=== PATIENT | female | born 1975 | race Asian ===

== ENCOUNTER → 2021-07-08 15:31 | Outpatient (CLI) | payer OTHER, SELFPAY ==
--- NOTE | 2021-07-08 15:40 | DI.MG.S_ITS ---
BILATERAL DIGITAL SCREENING MAMMOGRAM 3D/2D WITH CAD: 07/08/2021 CLINICAL: Routine screening. Comparison is made to exams dated: 03/24/2020 mammogram and 03/20/2019 mammogram - outside location. The tissue of both breasts is heterogeneously dense. This may lower the sensitivity of mammography. Current study was also evaluated with a Computer Aided Detection (CAD) system. There is a focal asymmetry with new grouped fine calcifications in the left breast at 3 o'clock posterior depth. This is more prominent. No other significant masses, calcifications, or other findings are seen in either breast. IMPRESSION: INCOMPLETE: NEEDS ADDITIONAL IMAGING EVALUATION The focal asymmetry in the left breast is indeterminate. Additional views with possible ultrasound are recommended. This exam was interpreted at Station ID: [id number]. NOTE: For mammograms, a report in lay terms will be sent to the patient. Approximately 15% of breast malignancies will not be visualized mammographically. In the management of a palpable breast mass, a negative mammogram must not discourage biopsy of a clinically suspicious lesion. Electronically Signed By: Ricky Pierson M.D. slc/:07/09/2021 09:32:52 letter sent: Additional Imaging Needed ACR BI-RADS Category 0: Incomplete 3340F
== END ==
PROVIDERS: Referring Provider Obstetrics & Gynecology; Visit Provider Obstetrics & Gynecology
DX: Z12.31 Encounter for screening mammogram for malignant neoplasm of breast (principal)
CPT/HCPCS: 77063; 77067

== ENCOUNTER → 2021-08-21 08:54 | Outpatient (CLI) | payer OTHER, SELFPAY ==
--- NOTE | 2021-08-21 | DI.MG.S_ITS ---
UNILATERAL LEFT DIGITAL DIAGNOSTIC MAMMOGRAM 3D/2D WITH ADDITIONAL VIEWS: 08/21/2021 CLINICAL: Additional evaluation requested from prior study. Comparison is made to exams dated: 07/08/2021 mammogram - [facility], 03/24/2020 mammogram, and 03/20/2019 mammogram - outside location. The tissue of left breast is heterogeneously dense. This may lower the sensitivity of mammography. There is a focal asymmetry with grouped fine calcifications in the left breast at 3 o'clock posterior depth. This is less prominent on additional views. The calcifications are confirmed and new. No other significant masses or calcifications are seen in the breast. IMPRESSION: INCOMPLETE: NEEDS ADDITIONAL IMAGING EVALUATION The focal asymmetry and fine grouped calcifications in the left breast are indeterminate. A targeted ultrasound is recommended and will immediately follow. This exam was interpreted at Station ID: [id number]. NOTE: For mammograms, a report in lay terms will be sent to the patient. Approximately 15% of breast malignancies will not be visualized mammographically. In the management of a palpable breast mass, a negative mammogram must not discourage biopsy of a clinically suspicious lesion. Electronically Signed By: Ricky Pierson M.D. slc/:08/21/2021 09:30:35 ACR BI-RADS Category 0: Incomplete 3340F
--- NOTE | 2021-08-21 | DI.US.S_ITS ---
LIMITED ULTRASOUND OF LEFT BREAST AND AXILLA: 08/21/2021 CLINICAL: Patient returns today to evaluate a focal asymmetry in the left breast. Comparison is made to exams dated: 08/21/2021 mammogram, 07/08/2021 mammogram - [facility], 03/24/2020 mammogram, and 03/20/2019 mammogram - outside location. Real-time ultrasound of the left breast 3 o'clock, and axilla regions was performed. Haji scale images of the real-time examination were reviewed. There is a 2.3 cm x 2.3 cm x 1.5 cm irregular mass with an indistinct margin in the left breast at 3 o'clock posterior depth 5 cm from the nipple. This irregular mass is hypoechoic. There are related micro calcifications. No significant abnormalities were seen sonographically in the left axilla. IMPRESSION: SUSPICIOUS OF MALIGNANCY 1) The 2.3 cm x 2.3 cm x 1.5 cm irregular mass in the left breast is at a high suspicion for malignancy. -An ultrasound guided biopsy is recommended. 2) No significant abnormalities were seen sonographically in the left axilla. Exam findings were discussed with the patient by Dr. Crain. This exam was interpreted at Station ID: [id number]. Electronically Signed By: Ricky Pierson M.D. [facility]/:08/21/2021 10:26:34 letter sent: Biopsy Required Ultrasound BI-RADS: 4c High suspicion of malignancy
== END ==
PROVIDERS: Referring Provider Obstetrics & Gynecology; Visit Provider Obstetrics & Gynecology
DX: R92.8 Other abnormal and inconclusive findings on diagnostic imaging of breast (principal); N63.25 Unspecified lump in the left breast, overlapping quadrants
CPT/HCPCS: 76642; 77065; G0279

== ENCOUNTER 2022-09-05 21:40 | Emergency (ER) | payer SELFPAY ==
[2022-09-05 21:44] VITALS: BP 116/85; PULSE 91; RESP 15; TEMP 37; O2SAT 97; BMI 23.8
[2022-09-05 22:04] LABS: Bacteria Urine Few (2-10); RBC Urine 0-1/HPF (0-5/HPF); WBC Urine 10-30/HPF (0-5/HPF)
[2022-09-05 22:05] LABS: Culture Indicated Urine Specimen Cultured; Squamous Epithelial Cell Urine None Seen (0-5/HPF)
[2022-09-05] MEDS: ONDANSETRON 4 MG ODT PREPACK 1 BOTTLE MISC (23:45)
[2022-09-05] MEDS: HYDROCODONE/ACET 5/325 PREPACK 1 BOTTLE MISC (23:45)
[2022-09-05] MEDS: levoFLOXacin 250 MG TABLET 750 MG PO (23:45)
[2022-09-05 23:46] VITALS: BP 117/77; PULSE 88; RESP 16; O2SAT 95
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
== END 2022-09-05 23:54 | disposition home or self-care (01) ==
PROVIDERS: Emergency Provider Emergency Medicine; Family Provider Registered Nurse Diabetes Educator; PCP Registered Nurse Diabetes Educator
DX: N12 Tubulo-interstitial nephritis, not specified as acute or chronic (principal)
CPT/HCPCS: 81003; 81015; 87077; 87086; 87186; 99283

== ENCOUNTER 2023-02-16 09:45 | Outpatient (RCR) | payer OTHER, SELFPAY ==
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
--- NOTE | 2022-06-03 16:59 | PT.OPPOC ---
Physical, Occupational & Speech Therapy At [facility] Current Diagnoses Malignant neoplasm of overlapping sites of left female breast (06/03/22) Pain in right shoulder (06/03/22) Pain in left shoulder (06/03/22) Soft tissue disorder, unspecified (06/03/22) Estrogen receptor positive status [ER+] (06/03/22) Visit Care Team Role Provider Type TAMMY Santiago Family Provider Advanced Information Architect Primary Care Provider Specialty: Medical Address: [address] [place] [address], [address] Email: [email or web address] Marcus Santos MD Attending Provider Non-Staff Referring Provider Specialty: Medical Address: [address] [place] [address], [id number] Email: Plan Of Care PT-OP-T Assessment and Plan Start: 06/02/22 12:04 Freq: Status: Active Protocol: Document 06/03/22 15:18 SAK (Rec: 06/03/22 16:56 SAK [id number]) Physical Therapy Assessment Rehab Potential Rehabilitation Potential Good Evaluation Complexity Number of Personal Factors/Comorbidities 1-2 Number of Body Systems Impaired 3 Clinical Presentation at Evaluation Evolving Impairments Impairments Pain,ROM,Soft Tissue Mobility Other Impairments at high risk for lymphedema Goals Three Impairment restricted scar mobility Short Term Goal (STG) Patient to instructed in self mobilization for surgical scars STG Duration 06/14/22 Channel Layer Goal (LTG) normal scar mobility to allow full soft tissue mobility including for full chest excursion for deep breathing and normal shoulder function. LTG Duration 09/11/22 Two Impairment high risk for lymphedema Short Term Goal (STG) Patient to be instructed in signs and symptoms of lymphedema, and precautions and prevention strategies STG Duration 06/14/22 Retirement Goal (LTG) Patient will demonstrate good understanding of signs and symptoms, precautions and prevention, and obtain myra compression sleeves for prevention. Circumferential measurements will be monitored myra UE's, chest, and subaxillary region. LTG Duration 09/01/22 One Impairment restricted shoulder ROM myra Short Term Goal (STG) Patient to be instructed in HEP with focus on ROM ex for bilateral shoulders STG Duration 07/03/22 Channel Layer Goal (LTG) Patient will be independent and compliant with HEP and demonstrate full active ROM bilateral shoulders to allow her to receive radiation treatments and regain full active use of her UE's LTG Duration 09/01/22 Assessment Summary Assessment Patient presents to PT s/p bilateral mastectomies 05/05/22 following lumpectomy with 3 cancerous lymph nodes. Patient reports follow-up with surgeon yesterday and was cleared for PT, exercise without restrictions. Is planning to have radiation but at this time her restrictions in shoulder ROM will not allow her to get into the position required for radiation. She is unable to lift her UE's above shoulder level forward or out to the side. She is also at high risk for lymphedema; she was instructed in prevention and precautions with written information issued and myra compression sleeves encouraged . Circumferential measurements were symmetrical. She does have a small area of fluid collection left subaxillary region but reports it seems like it has been getting better; will need to be monitored. Her incisions are healing well. She was instructed in HEP for bilateral shoulder ROM and demonstrated good understanding. She will benefit from PT for shoulder ROM, gentle scar mobilization when appropriate, and patient education and monitoring for signs and symptoms of lymphedema. POC was discussed and patient was in agreement. When radiation starts PT will likely be put on hold. Physical Therapy Plan Frequency and Duration Duration of treatment (weeks) 12 Plan of Care Start Date 06/03/22 Plan of Care End Date 09/01/22 Therapeutic Interventions Therapeutic Interventions Home Exercise Program, Lymphedema Management,Manual Therapy,Patient/Caregiver Education,Self-Care/Home Management,Soft Tissue Mobilization,Taping, Therapeutic Activities, Therapeutic Exercises Next Visit Focus/Plan Next Note Type Treatment Note Next Visit Plan Review HEP, gentle progression as tolerated including use of pulleys for shoulder ROM, initiate gentle scar massage when fully healed. Plan of Care Dates Plan of Care Start Date 06/03/22 Plan of Care End Date 09/01/22 Electronically Signed by: Emily Packer, PT 06/03/22 [id number] If you are in agreement with this Plan of Care, please return a signed and dated copy. I have reviewed this Plan of Care and certify that the skilled therapy services above are required to meet the patient?s needs. Physician Signature Date Printed Name and Credentials Clinical Instructor Signature Printed Name and Credentials
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
--- NOTE | 2022-08-18 09:03 | PT-OP ANOTE ---
Cancelled pt due to lack of insurance coverage.
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
--- NOTE | 2022-09-01 14:05 | PT.OPPOC ---
Physical, Occupational & Speech Therapy At [facility] Current Diagnoses Malignant neoplasm of overlapping sites of left female breast (09/01/22) Pain in right shoulder (09/01/22) Pain in left shoulder (09/01/22) Soft tissue disorder, unspecified (09/01/22) Estrogen receptor positive status [ER+] (09/01/22) Visit Care Team Role Provider Type TAMMY Santiago Family Provider Advanced Qa Tester Primary Care Provider Specialty: Medical Address: [address] [place] [address], [id number] Email: [email or web address] Marcus Santos MD Attending Provider Non-Staff Referring Provider Specialty: Medical Address: [address] [place] [address], [id number] Email: Plan Of Care PT-OP-T Assessment and Plan Start: 06/02/22 12:04 Freq: Status: Active Protocol: Document 09/01/22 09:47 SAK (Rec: 09/01/22 10:33 SAK [id number]) Physical Therapy Assessment Impairments Impairments Pain,ROM,Soft Tissue Mobility Other Impairments at high risk for lymphedema Goals Three Impairment restricted scar mobility Short Term Goal (STG) Patient to instructed in self mobilization for surgical scars 08/18/22: goal met STG Duration goal met Collection Card Clerk Goal (LTG) normal scar mobility to allow full soft tissue mobility including for full chest excursion for deep breathing and normal shoulder function. LTG Duration 10/02/22 Two Impairment high risk for lymphedema Short Term Goal (STG) Patient to be instructed in signs and symptoms of lymphedema, and precautions and prevention strategies 08/18/22: goal met STG Duration goal met Senior Care Goal (LTG) Patient will demonstrate good understanding of signs and symptoms, precautions and prevention, and obtain myra compression sleeves for prevention. Circumferential measurements will be monitored myra UE's, chest, and subaxillary region. 09/01/22: no signs or symptoms of lymphedema at this time. Has not obtained compression sleeves yet. LTG Duration 10/02/22 One Impairment restricted shoulder ROM myra Short Term Goal (STG) Patient to be instructed in HEP with focus on ROM ex for bilateral shoulders 08/18/22: goal met STG Duration goal met, ongoing progression and modification Collection Card Clerk Goal (LTG) Patient will be independent and compliant with HEP and demonstrate full active ROM bilateral shoulders to allow her to receive radiation treatments and regain full active use of her UE's 08/18/22: shoulder flex 168 right, 149 left, abduction 165 right, 155 left, ER 85 right 80 left, IR T12 right, L3 left . Impingement symptoms left 09/01/22: shoulder flex 175 right, 165 left, abduction 165 myra, ER 95 right 85 left, IR not assessed. Decreased impingement symptoms left, improved scapular awareness but some impingement symtpms persist LTG Duration 10/02/22 Assessment Summary Assessment Progression of ROM and strengthening exercises today with problem-solving position and technique to prevent overactivation of UT and impingement. Good compliance and progress. Plan 1 further PT visit at this time then anticipate discharge. Physical Therapy Plan Frequency and Duration Frequency of Treatment 1 visit Duration of treatment (weeks) 4 Plan of Care Start Date 09/01/22 Plan of Care End Date 10/02/22 Therapeutic Interventions Therapeutic Interventions Home Exercise Program, Lymphedema Management,Manual Therapy,Patient/Caregiver Education,Self-Care/Home Management,Soft Tissue Mobilization,Taping, Therapeutic Activities, Therapeutic Exercises Next Visit Focus/Plan Next Note Type Treatment Note Next Visit Plan Reassessment to determine need for any further PT, anticipate discharge next visit if doing well. Check myra shoulder ROM and strength, take circumferential measurements myra UE's, problem solve and progress HEP as indicated. Plan of Care Dates Plan of Care Start Date 09/01/22 Plan of Care End Date 10/02/22 Electronically Signed by: Emily Packer, PT 09/01/22 9009 If you are in agreement with this Plan of Care, please return a signed and dated copy. I have reviewed this Plan of Care and certify that the skilled therapy services above are required to meet the patient?s needs. Physician Signature Date Printed Name and Credentials Clinical Instructor Signature Printed Name and Credentials
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
--- NOTE | 2022-09-20 16:56 | PT.OPPOC ---
Physical, Occupational & Speech Therapy At [facility] Current Diagnoses Malignant neoplasm of overlapping sites of left female breast (09/20/22) Pain in right shoulder (09/20/22) Pain in left shoulder (09/20/22) Soft tissue disorder, unspecified (09/20/22) Estrogen receptor positive status [ER+] (09/20/22) Visit Care Team Role Provider Type TAMMY Santiago Family Provider Advanced Hatchery Attendant Primary Care Provider Specialty: Medical Address: [address] [place] [address], [id number] Email: [email or web address] Marcus Santos MD Attending Provider Non-Staff Referring Provider Specialty: Medical Address: [address] [place] [address], [address] Email: Plan Of Care PT-OP-T Assessment and Plan Start: 06/02/22 12:04 Freq: Status: Active Protocol: Document 09/20/22 16:44 SAK (Rec: 09/20/22 16:56 SAK [id number]) Physical Therapy Assessment Goals Three Impairment restricted scar mobility Short Term Goal (STG) Patient to instructed in self mobilization for surgical scars 08/18/22: goal met STG Duration goal met Care Home Goal (LTG) normal scar mobility to allow full soft tissue mobility including for full chest excursion for deep breathing and normal shoulder function. 09/20/22: good goal progress LTG Duration 11/20/22 Two Impairment high risk for lymphedema Short Term Goal (STG) Patient to be instructed in signs and symptoms of lymphedema, and precautions and prevention strategies 08/18/22: goal met STG Duration goal met Care Home Goal (LTG) Patient will demonstrate good understanding of signs and symptoms, precautions and prevention, and obtain myra compression sleeves for prevention. Circumferential measurements will be monitored myra UE's, chest, and subaxillary region. 09/01/22: no signs or symptoms of lymphedema at this time. Has not obtained compression sleeves yet. 09/20/22: good goal progress LTG Duration 11/20/22 One Impairment restricted shoulder ROM myra Short Term Goal (STG) Patient to be instructed in HEP with focus on ROM ex for bilateral shoulders 08/18/22: goal met STG Duration goal met, ongoing progression and modification Health Administrator Goal (LTG) Patient will be independent and compliant with HEP and demonstrate full active ROM bilateral shoulders to allow her to receive radiation treatments and regain full active use of her UE's 08/18/22: shoulder flex 168 right, 149 left, abduction 165 right, 155 left, ER 85 right 80 left, IR T12 right, L3 left . Impingement symptoms left 09/01/22: shoulder flex 175 right, 165 left, abduction 165 myra, ER 95 right 85 left, IR not assessed. Decreased impingement symptoms left, improved scapular awareness but some impingement symtpms persist 09/20/22: some impingement symptoms persist right shoulder with lack of full ROM , poor activation of middle and lower traps LTG Duration 11/20/22 Assessment Summary Assessment Patient continues to need PT to work on improved strength and ROM shoulders and chest with PT guidance due to poor mid and lower trap Having some impingement symptoms right shoulder due to decreased ability to activate middle and lower trap right. Would benefit from further PT. Continue to monitor for signs and symptoms of lymphedema as pt activity level increases. Physical Therapy Plan Frequency and Duration Frequency of Treatment Every Other Week Duration of treatment (weeks) 8 Plan of Care Start Date 09/20/22 Plan of Care End Date 11/20/22 Therapeutic Interventions Therapeutic Interventions Home Exercise Program, Lymphedema Management,Manual Therapy,Patient/Caregiver Education,Self-Care/Home Management,Soft Tissue Mobilization,Taping, Therapeutic Activities, Therapeutic Exercises Next Visit Focus/Plan Next Note Type Treatment Note Next Visit Plan [facility] 2x/month for 2 months. Plan of Care Dates Plan of Care Start Date 09/20/22 Plan of Care End Date 11/20/22 Electronically Signed by: Emily Packer, PT 09/20/22 1292 If you are in agreement with this Plan of Care, please return a signed and dated copy. I have reviewed this Plan of Care and certify that the skilled therapy services above are required to meet the patient?s needs. Physician Signature Date Printed Name and Credentials Clinical Instructor Signature Printed Name and Credentials
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
--- NOTE | 2022-11-16 15:40 | PT.OPPOC ---
Physical, Occupational & Speech Therapy At [facility] Current Diagnoses Malignant neoplasm of overlapping sites of left female breast (11/16/22) Pain in right shoulder (11/16/22) Pain in left shoulder (11/16/22) Soft tissue disorder, unspecified (11/16/22) Estrogen receptor positive status [ER+] (11/16/22) Visit Care Team Role Provider Type TAMMY Santiago Family Provider Advanced Seat Trimmer Primary Care Provider Specialty: Medical Address: [address] [place] [address], [id number] Email: [email or web address] Marcus Santos MD Attending Provider Non-Staff Referring Provider Specialty: Medical Address: [address] [place] [address], [address] Email: Plan Of Care PT-OP-T Assessment and Plan Start: 06/02/22 12:04 Freq: Status: Active Protocol: Document 11/16/22 10:36 SAK (Rec: 11/16/22 11:16 SAK [id number]) Physical Therapy Assessment Goals Three Impairment restricted scar mobility Short Term Goal (STG) Patient to instructed in self mobilization for surgical scars 08/18/22: goal met STG Duration goal met Snf Goal (LTG) normal scar mobility to allow full soft tissue mobility including for full chest excursion for deep breathing and normal shoulder function. 09/20/22: good goal progress 11/20/22: continues to progress LTG Duration 01/17/23 Two Impairment high risk for lymphedema Short Term Goal (STG) Patient to be instructed in signs and symptoms of lymphedema, and precautions and prevention strategies 08/18/22: goal met STG Duration goal met Snf Goal (LTG) Patient will demonstrate good understanding of signs and symptoms, precautions and prevention, and obtain myra compression sleeves for prevention. Circumferential measurements will be monitored myra UE's, chest, and subaxillary region. 09/01/22: no signs or symptoms of lymphedema at this time. Has not obtained compression sleeves yet. 09/20/22: good goal progress 11/20/22: no signs or symptoms of lymphedema. Has not obtained compression sleeves for compression; this not required but discussed benefits and need to be aware of any signs or symptoms LTG Duration 01/17/23 One Impairment restricted shoulder ROM myra Short Term Goal (STG) Patient to be instructed in HEP with focus on ROM ex for bilateral shoulders 08/18/22: goal met STG Duration goal met, ongoing progression and modification Import Manager Goal (LTG) Patient will be independent and compliant with HEP and demonstrate full active ROM bilateral shoulders to allow her to receive radiation treatments and regain full active use of her UE's 08/18/22: shoulder flex 168 right, 149 left, abduction 165 right, 155 left, ER 85 right 80 left, IR T12 right, L3 left . Impingement symptoms left 09/01/22: shoulder flex 175 right, 165 left, abduction 165 myra, ER 95 right 85 left, IR not assessed. Decreased impingement symptoms left, improved scapular awareness but some impingement symtpms persist 09/20/22: some impingement symptoms persist right shoulder with lack of full ROM , poor activation of middle and lower traps 11/16/22: right shoulder ROM WNL but with some instability, left shoulder lacking full elevation and unable to reach fully behind her back with some pinching sensation. Progressing with HEP, emphasis on need for strengthening for stability in movement and function, not just stretching LTG Duration 01/17/23 Assessment Summary Assessment Patient continues to progress with improving scar and soft tissue mobility, progression of HEP, and shows no signs or symptoms of lymphedema at this time. She has full active motion right shoulder, left shoulder still restricted into flexion and IR and she benefits from progression of ther ex as well as manual techniques for ROM and soft tissue mobilization. She has made good goal progress and would benefit from 4 additional visits over the next 2 months to continue to progress self-care with ROM and strengthening exercises and self-massage, and work further on soft tissue mobilization in scars and periscapular region. Patient highly motivated. POC discussed and she was in agreement. Physical Therapy Plan Frequency and Duration Frequency of Treatment Every Other Week Duration of treatment (weeks) 8 Plan of Care Start Date 11/16/22 Plan of Care End Date 01/17/23 Therapeutic Interventions Therapeutic Interventions Home Exercise Program, Lymphedema Management,Manual Therapy,Patient/Caregiver Education,Self-Care/Home Management,Soft Tissue Mobilization,Taping, Therapeutic Activities, Therapeutic Exercises Next Visit Focus/Plan Next Note Type Treatment Note Next Visit Plan Continue PT for ther ex, patient education, manual techniques for shoulder ROM and soft tissue mobilization. Plan of Care Dates Plan of Care Start Date 11/16/22 Plan of Care End Date 01/17/23 Electronically Signed by: Emily Packer, PT 11/16/22 [id number] If you are in agreement with this Plan of Care, please return a signed and dated copy. I have reviewed this Plan of Care and certify that the skilled therapy services above are required to meet the patient?s needs. Physician Signature Date Printed Name and Credentials Clinical Instructor Signature Printed Name and Credentials
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
== END 2023-03-10 10:08 | disposition home or self-care (01) ==
LOC: PHYS 09:45
PROVIDERS: Family Provider Registered Nurse Diabetes Educator; PCP Registered Nurse Diabetes Educator; Referring Provider Radiology Radiation Oncology; Visit Provider Radiology Radiation Oncology
DX: C50.812 Malignant neoplasm of overlapping sites of left female breast (principal); Z17.0 Estrogen receptor positive status [ER+]; M79.9 Soft tissue disorder, unspecified; M25.512 Pain in left shoulder; M25.511 Pain in right shoulder; I89.0 Lymphedema, not elsewhere classified
CPT/HCPCS: 97110; 97140; 97162; 97535

== ENCOUNTER 2024-05-11 10:18 | Day surgery (SDC) | payer OTHER, SELFPAY ==
--- NOTE | 2024-05-11 | PATH_ITS ---
[facility] Accession Number: [id number] No. of containers..04 Tissue . 01 Material submitted: . PART A: colon - POLYP AT 45 CM PART B: colon - POLYP AT 55 CM PART C: colon - POLYP AT 60 CM PART D: colon - POLYP AT 40 CM . 01 Diagnosis: A. COLON POLYP AT 45 CM: Hyperplastic polyp. . B. COLON POLYP AT 55 CM: Hyperplastic polyp. . C. COLON POLYP AT 60 CM: Hyperplastic polyp. . D. COLON POLYP AT 40 CM: Hyperplastic polyp. [facility] 05/15/2024 1146 Local . 01 Electronically signed: . Alexandru Reece MD, PhD, Pathologist NPI- [id number] . 01 Gross description: . Part A: POLYP AT 45 CM: Received in formalin are 2 fragment(s) of [place], soft tissue measuring 0.1 x 0.1 x 0.1 cm to 0.2 x 0.2 x 0.2 cm submitted entirely in 1 cassette(s) Part B: POLYP AT 55 CM: Received in formalin is 1 fragment(s) of [place], soft tissue measuring 0.4 x 0.2 x 0.2 cm submitted entirely in 1 cassette(s) Part C: POLYP AT 60 CM: Received in formalin is 1 fragment(s) of [place], soft tissue measuring 0.4 x 0.4 x 0.1 cm submitted entirely in 1 cassette(s) Part D: POLYP AT 40 CM: Received in formalin is 1 fragment(s) of [place], soft tissue measuring 0.3 x 0.2 x 0.2 cm submitted entirely in 1 cassette(s) /[facility] 05/14/2024 1702 Local . 01 Pathologist provided ICD-10: K63. CPT . 882112, 231462, 483948, 217147 Specimen Comment: A courtesy copy of this report has been sent to [facility] Pathology Performed at: [address] [id number] MD Rigoberto Winslow MD Phone: [phone]
[2024-05-11 10:39] VITALS: BP 98/69; PULSE 84; RESP 16; TEMP 36.4; O2SAT 98
[2024-05-11] MEDS: LACTATED RINGERS 1,000 ML 42 ML IV (10:50)
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
[2024-05-11 12:27] VITALS: BP 99/60; PULSE 96; RESP 19; TEMP 36.3; O2SAT 97
--- NOTE | 2024-05-11 12:28 | PM.OP.COLON ---
Operative Date/Time/Diagnoses Date of procedure: 05/11/24 Time of procedure: 12:28 Pre-op diagnosis: Screening colonoscopy, history of breast cancer and BRCA2 mutation Post-op diagnosis: same Procedure & Clinicians Study performed: Colonoscopy Same procedure as scheduled: Yes Indications: Screening colonoscopy, BRCA2 mutation carrier Surgeon: Jhoan Aguilar Procedure Notes SCOAP/Timeout: Performed Procedure in detail: Patient seen in the preop area, H and P updated, positive fecal occult testing. Patient reported prep was adequate. Patient brought back to procedure room, time-out was performed verifying correct patient procedure. She was given sedation. External rectal exam was performed with no identified fissures, or external hemorrhoids significance. Some skin tags. Digital rectal exam performed with no masses or blood. Colonoscope placed, colon insufflated, adequacy of prep was adequate but not perfect the scope was passed without difficulty to the cecum, verified by identification of the tinea and palpation The scope was withdrawn with circumferential view of the colon, areas occluded by bowel prep or cleaned as much as possible. Multiple small polyps all less than 1 cm and all sessile were biopsied in the following locations, 45 cm, 55 cm, 60 cm, 40 cm and were hemostatic after biopsy. These were sent for pathology No lesions were identified upon removal of the scope. The scope was retroflexed in the rectum and no internal hemorrhoids were identified air was withdrawn from the colon, scope was withdrawn, and the patient was brought to the recovery area in stable condition. Scope withdrawal time: 12 minutes Findings: polyp(s) (Multiple polyps, all less than 1 cm, all sessile, some biopsies were taken prior to reaching the cecum) Complications: none Impression: Multiple small polyps Post-procedure Recommendations: Other recommendation(s) Plan for aftercare: Patient should follow up with surgical oncologist for next steps. My recommendation would be given her BRCA mutation and cancer history, and now with multiple colonic polyps, she may benefit from frequent colonoscopy, possibly 1-3 years, though deferred to her oncologist for optimal timing and optimal location to allow for a comprehensive Cancer Care Follow up: as needed Disposition: PACU
[2024-05-11 12:32] VITALS: BP 109/67; PULSE 105; RESP 20; O2SAT 99
[2024-05-11 12:43] VITALS: BP 94/52; PULSE 99; RESP 15; O2SAT 95
== END 2024-05-11 12:56 | disposition home or self-care (01) ==
PROVIDERS: Family Provider Registered Nurse Diabetes Educator; PCP Registered Nurse Diabetes Educator
DX: Z12.11 Encounter for screening for malignant neoplasm of colon (principal); Z85.3 Personal history of malignant neoplasm of breast; Z14.8 Genetic carrier of other disease; R19.5 Other fecal abnormalities; K63.5 Polyp of colon
CPT/HCPCS: 45380; J2704

== ENCOUNTER 2024-05-15 10:45 | Outpatient (RCR) | payer OTHER, SELFPAY ==
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
--- NOTE | 2024-01-19 17:18 | PT.OPPOC ---
Physical, Occupational & Speech Therapy At [facility] Current Diagnoses Other bursitis of knee, left knee (01/19/24) Difficulty in walking, not elsewhere classified (01/19/24) Weakness (01/19/24) Edema, unspecified (01/19/24) Visit Care Team Role Provider Type TAMMY Santiago Family Provider Advanced B[employer] Agent Primary Care Provider Specialty: Medical Address: [address] [place] [address], [id number] Email: [email or web address] Shawanda Dennis MD Attending Provider Non-Staff Referring Provider Specialty: Oncology Address: [address] [place] [address], [id number] Email: Plan Of Care PT-OP-B Current Condition Start: 01/18/24 16:16 Freq: Status: Active Protocol: Document 01/19/24 15:17 SAK (Rec: 01/19/24 17:03 SAK [id number]) Current Condition History of Current Condition Onset Date 5 weeks Current Complaints L knee pain History of Current Condition sudden onset left knee pain, started with a little fluid filled bump below knee, then helped friend moving boxes, next day very puffy, couldn't move it. At end of summer started doing some lunges and squats and had similar thing. Chiropracter did laser and taping and alternating ice and heat. This time has had 2 laser and tape treatments but hasn't gotten better yet. States thought she was being careful with alignment and technique. Now getting compensatory soreness. Can't straighten knee all the way. Tried a knee brace, not helpful Feels it is going to give out. Can't bend beyond 90 degrees, feels crackling. Prior Treatments and Tests x-ray: no report yet. Treatment Goals Patient/Caregiver Goals minimize pain, return to prior level of function and understand correct technique for weight bearing leg strengthening. 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 [employer] Current Functional Impairments (Reported) Functional Limitations- ADL's painful Functional Limitations- Mobility/Gait painful and antalgic Functional Limitations- Work/School challenging, painful standing, walking PT-OP-T Assessment and Plan Start: 01/18/24 16:16 Freq: Status: Active Protocol: Document 01/19/24 15:17 [facility] (Rec: 01/19/24 17:03 [facility] [id number]) Physical Therapy Assessment Rehab Potential Rehabilitation Potential Good Evaluation Complexity Number of Personal Factors/Comorbidities 1-2 Number of Body Systems Impaired 3 Clinical Presentation at Evaluation Evolving Impairments Impairments Activity Tolerance,Edema,Gait, Pain,Soft Tissue Mobility, Strength Assessment Summary Assessment Patient presents to PT with function-limiting left knee pain, clicking, giving way, and swelling which started about a month ago after trying to start back to weight- bearing exercises including squats and lunges. Woke up with painful and swollen region lateral infrapatellar area left knee. Got a little better then helped friend move some boxes and experienced further swelling whole knee. Has seen chiropractor twice and treated with laser and kinesioape. No change in pain . Over the summer had similar pain that wasn't as severe but mostly went away after similar treatment. At this time patient pain and swelling moderate to severe with antalgic gait, step-to pattern on stairs, and inability to bend her left knee more than 90 degrees, clicking and popping as well as occasionally feeling it is going to give way. Circumferential measurements at knee joint: right knee 35 .3cm, left knee 39.8cm. Patient is tender to palpation medial joint line, has lateral positioning of her patella with excessive lateral glide, tightness in lateral quad and IT band. Unable to manual muscle test knee extension due to pain. Patient has weakness in her hips. Patient has hypermobility in her joints and ligamentous laxity bilateral knees. Treatment initiated with IFES with ice left knee, instruction in gentle exercises for strengthening (quad sets with pillow under knee and 4 way leg raises), instruction in self massage of lateral quad and IT band. KT tape applied to facilitate improved patellar positioning and glide and decrease swelling. Feel she will benefit from PT to decrease pain and swelling, improve strength and patellar alignment and movement, improve soft tissue mobility, and instruct in correct form for closed chain exercises. POC was discussed and she was in agreement. Physical Therapy Plan Frequency and Duration Frequency of Treatment 2x/Week Duration of treatment (weeks) 12 Plan of Care Start Date 01/19/24 Plan of Care End Date 04/18/24 Therapeutic Interventions Therapeutic Interventions Home Exercise Program,Manual Therapy,Neuromuscular Re- education,Patient/Caregiver Education,Self-Care/Home Management,Soft Tissue Mobilization,Taping, Therapeutic Activities, Therapeutic Exercises Modalities Cold Pack/Ice Massage,Electric Stimulation,Hot Packs, Iontophoresis,Ultrasound Other Referrals/Consults Referrals/Consults Recommended If not improved with PT feel further imaging may be indicated. Next Visit Focus/Plan Next Note Type Treatment Note Next Visit Plan Asses response to first treatment, review HEP, perform soft tissue mob to lateral quad and IT band, possible lymphatic massage to reduce swelling. Continue modalities and KT tape as indicated. Plan of Care Dates Plan of Care Start Date 01/19/24 Plan of Care End Date 04/18/24 Electronically Signed by: Emily Packer, PT 01/19/24 [id number] If you are in agreement with this Plan of Care, please return a signed and dated copy. I have reviewed this Plan of Care and certify that the skilled therapy services above are required to meet the patient?s needs. Physician Signature Date Printed Name and Credentials Clinical Instructor Signature Printed Name and Credentials
--- NOTE | 2024-01-24 15:52 | PT.OTN ---
Current Diagnoses Other bursitis of knee, left knee (01/24/24) Difficulty in walking, not elsewhere classified (01/24/24) Weakness (01/24/24) Edema, unspecified (01/24/24) Physical Therapy Treatment Note PT-OP-A Visit Information Start: 01/18/24 16:16 Freq: Status: Active Protocol: Document 01/24/24 14:33 SAK (Rec: 01/24/24 15:51 [facility] [id number]) Out-Patient Physical Therapy Visit Information Visit Information Visit Type Treatment Note Visit Start Time 14:30 Visit Stop Time 15:25 Visit Number 2 Evaluation Information Evaluation Date 01/15/24 Precautions Precautions osteoporosis, history br CA with myra mastectomies PT-OP-B Current Condition Start: 01/18/24 16:16 Freq: Status: Active Protocol: Document 01/24/24 14:33 SAK (Rec: 01/24/24 15:51 [facility] [id number]) Current Condition History of Current Condition Onset Date 5 weeks Current Complaints L knee pain History of Current Condition sudden onset left knee pain, started with a little fluid filled bump below knee, then helped friend moving boxes, next day very puffy, couldn't move it. At end of summer started doing some lunges and squats and had similar thing. Chiropracter did laser and taping and alternating ice and heat. This time has had 2 laser and tape treatments but hasn't gotten better yet. States thought she was being careful with alignment and technique. Now getting compensatory soreness. Can't straighten knee all the way. Tried a knee brace, not helpful Feels it is going to give out. Can't bend beyond 90 degrees, feels crackling. Prior Treatments and Tests x-ray: no report yet. PT-OP-C Subjective Start: 01/18/24 16:16 Freq: Status: Active Protocol: Document 01/24/24 14:33 SAK (Rec: 01/24/24 15:51 [facility] [id number]) OP-PT Subjective Patient Comments Patient Comments A little better, trying not to limp, focusing on doing heel toe gait. Saw doctor today, discussed options. x-ray showed swelling but no fracture. Saw chiropractor yesterday and had red light treatment and re-did KT tape. Also going to have an accupuncture treatment next week with physician's office. Liked PT KT tape Patient Reported Progress Improving PT-OP-F Manual Assessment Start: 01/18/24 16:16 Freq: Status: Active Protocol: Document 01/19/24 15:17 [facility] (Rec: 01/19/24 17:03 [facility] [id number]) Manual Assessments Soft Tissue Assessment Soft Tissue Mobility Assessment palpable tightness lateral quad and IT band PT-OP-G Mobility & Gait Start: 01/18/24 16:16 Freq: Status: Active Protocol: Document 01/19/24 15:17 [facility] (Rec: 01/19/24 17:03 [facility] [id number]) OP Mobility Evaluation Transfers Sit to Stand painful, dec use left LE Functional Movements Lifting and Carrying unable Squats unable Running Assessment unable OP Gait Assessment Gait Gait Assistance Required: Independent Assistive Devices Assistive Device None Gait Deviations General Gait Pattern Antalgic Comments Gait Comments Patient instructed in use of cane and trekking pole, preferred pole. Instructed in correct fit and use Stair Climbing Evaluation Evaluation Level of Assist On Stairs Independent Devices Stair Climbing Assistive Devices Left Railing,Right Railing Technique/Endurance Stair Climbing Technique Step to Step Comments Stair Climbing Comments painful PT-OP-J Posture/Palpation/Skin Start: 01/18/24 16:16 Freq: Status: Active Protocol: Document 01/19/24 15:17 [facility] (Rec: 01/19/24 17:03 [facility] [id number]) Posture Evaluation Position Standing Patellar Posture (L) Laterally Tilted Palpation Assessment Location One Palpation Location left knee Palpation Findings Edema Palpation Details puffy and boggy texture of swelling. No redness or warmth. PT-OP-K Range of Motion Start: 01/18/24 16:16 Freq: Status: Active Protocol: Document 01/19/24 15:17 [facility] (Rec: 01/19/24 17:03 [facility] [id number]) Hip Goniometric Range of Motion Hip myra Hip ROM WFL Yes Knee Goniometric Range of Motion Knee Left Flexion Active (degrees) 90 Extension Active (degrees) 20 Right Flexion Active (degrees) 150 Extension Active (degrees) 0 Hyper-Extension Active 5 Knee ROM Limitations Knee ROM Limitations Pain,Swelling Ankle and Foot Goniometric Range of Motion Ankle and Foot myra Ankle/Foot ROM WFL Yes PT-OP-L Special Tests Start: 01/18/24 16:16 Freq: Status: Active Protocol: Document 01/19/24 15:17 [facility] (Rec: 01/19/24 17:03 [facility] [id number]) Special Tests Knee Special Tests Patellar Grind Test Test Results + Valgus- 25 Degrees Test Results - Diana Test Test Results + Varus- 25 Degrees Test Results - PT-OP-M Strength Start: 01/18/24 16:16 Freq: Status: Active Protocol: Document 01/19/24 15:17 [facility] (Rec: 01/19/24 17:03 [facility] [id number]) Knee Strength Knee Manual Muscle Testing Left Flexion (S2) 3- Fair- Extension (L3) 3- Fair- Right Flexion (S2) 5 Normal Extension (L3) 5 Normal PT-OP-Q Treatments Start: 01/18/24 16:16 Freq: Status: Active Protocol: Document 01/24/24 14:33 [facility] (Rec: 01/24/24 15:51 [facility] [id number]) Therapeutic Exercises Supine Exercises SAQ Reps/Minutes 10x5 Comments added to HEP ball squeeze Reps/Minutes 10x Comments substitute in HEP for sidelying hip add bridge Reps/Minutes 10x5 Comments substitute for prone hip ext SLR Reps/Minutes 10x Comments cues for straight knee quad set Reps/Minutes 10x Comments cues for activation VMO Sidelying Exercises hip add Reps/Minutes 5x5 Comments twinges on left hip ab Reps/Minutes 10x5 Standing Exercises shallow squats Reps/Minutes 10x Comments mirror for visual feedback Gait Training Gait Activity 1 Description slow, heel/toe gait, no limp Device Used none Level of Assistance SBA, cues Surface firm Distance/Duration 2 min Manual Therapy Treatment Consent Patient gave verbal consent for manual Yes treatment Taping 1 Body Location left knee Treatment Focus edema reduction and facilitate patellar positioning more medially Type of Tape Kinesio Tape Skin Inspection intact Comments KT tape from chiropractor in place from today; 2 I strips. med and lat patella. PT provided 1 Y strip to facil medial glide patella and 2 fan strips for edema reduction Self-Care/Home Management Treatment Education Patient Education Body Mechanics,Home Exercise Program,Pain Management Other Education self massage with rolling pin reviewed PT-OP-R Modalities Start: 01/18/24 16:16 Freq: Status: Active Protocol: Document 01/24/24 14:33 [facility] (Rec: 01/24/24 15:52 [facility] [id number]) Electric Stimulation Electric Stimulation Interferential Current (IFC) Body Location left knee Intensity 22 Target/Sweep Sweep Patient Position Hooklying Combined With Heat/Cold Cold Pack PT-OP-T Assessment and Plan Start: 01/18/24 16:16 Freq: Status: Active Protocol: Document 01/24/24 14:33 [facility] (Rec: 01/24/24 15:51 [facility] [id number]) Physical Therapy Assessment Goals 3 Impairment left LE weakness Short Term Goal (STG) Instruct in HEP for purposes of strengthening left LE STG Duration 02/24/24 Mcfp Goal (LTG) Patient to be independent and compliant with HEP and demosntrate improvement in LE strength to at least 4+/5 2 Impairment lower extremity functional scale 47% Short Term Goal (STG) Improve score to at least 60% as measure of improved activitiy tolerance and left LE function STG Duration 02/24/24 Rand Maker Goal (LTG) Improve score to at least 75% as measure of improved activity tolerance and left LE function LTG Duration 03/26/24 1 Impairment left knee pain as high as 8/10 , antalgic gait, difficulty on stairs Short Term Goal (STG) Decrease pain by at least 50% STG Duration 02/24/24 Mcfp Goal (LTG) Decrease pain by at least 75% with all usual activities and demonstrate ability to walk at normal speed without limp and alternate feet on stairs with ease LTG Duration 03/26/2524 Assessment Summary Assessment Patient walking with min limp, slow, careful with heel/toe gait. Modifications made to HEP and progressed HEP with new HO issued. Trial Sci-Fit with good kimberly with emphasis LE alignment. Worked with visual feedback of mirror for shallow squat due to patient tendency toward genu varus. Good progress. Physical Therapy Plan Frequency and Duration Frequency of Treatment 2x/Week Duration of treatment (weeks) 12 Plan of Care Start Date 01/19/24 Plan of Care End Date 04/18/24 Therapeutic Interventions Therapeutic Interventions Home Exercise Program,Manual Therapy,Neuromuscular Re- education,Patient/Caregiver Education,Self-Care/Home Management,Soft Tissue Mobilization,Taping, Therapeutic Activities, Therapeutic Exercises Modalities Cold Pack/Ice Massage,Electric Stimulation,Hot Packs, Iontophoresis,Ultrasound Next Visit Focus/Plan Next Note Type Treatment Note Next Visit Plan Continue gentle strengthening, patient education for ther ex and functional movements with correct alignment. Modalities and manual therapy PRN.
--- NOTE | 2024-01-26 16:22 | PT.OTN ---
Current Diagnoses Other bursitis of knee, left knee (01/26/24) Difficulty in walking, not elsewhere classified (01/26/24) Weakness (01/26/24) Edema, unspecified (01/26/24) Physical Therapy Treatment Note PT-OP-A Visit Information Start: 01/18/24 16:16 Freq: Status: Active Protocol: Document 01/26/24 14:38 SAK (Rec: 01/26/24 16:22 SAK [id number]) Out-Patient Physical Therapy Visit Information Visit Information Visit Type Treatment Note Visit Start Time 14:30 Visit Number 3 Evaluation Information Evaluation Date 01/15/24 Precautions Precautions osteoporosis, history br CA with myra mastectomies PT-OP-B Current Condition Start: 01/18/24 16:16 Freq: Status: Active Protocol: Document 01/26/24 14:38 SAK (Rec: 01/26/24 16:22 SAK [id number]) Current Condition History of Current Condition Onset Date 5 weeks Current Complaints L knee pain History of Current Condition sudden onset left knee pain, started with a little fluid filled bump below knee, then helped friend moving boxes, next day very puffy, couldn't move it. At end of summer started doing some lunges and squats and had similar thing. Chiropracter did laser and taping and alternating ice and heat. This time has had 2 laser and tape treatments but hasn't gotten better yet. States thought she was being careful with alignment and technique. Now getting compensatory soreness. Can't straighten knee all the way. Tried a knee brace, not helpful Feels it is going to give out. Can't bend beyond 90 degrees, feels crackling. Prior Treatments and Tests x-ray: no report yet. PT-OP-C Subjective Start: 01/18/24 16:16 Freq: Status: Active Protocol: Document 01/26/24 14:38 SAK (Rec: 01/26/24 16:22 SAK [id number]) OP-PT Subjective Patient Comments Patient Comments Maybe a little less swollen, doing HEP. Saw chiropractor today, had laser treatment today. Without KT tape straightening knee was crackling. Patient Reported Progress Improving PT-OP-F Manual Assessment Start: 01/18/24 16:16 Freq: Status: Active Protocol: Document 01/19/24 15:17 SAK (Rec: 01/19/24 17:03 [facility] [id number]) Manual Assessments Soft Tissue Assessment Soft Tissue Mobility Assessment palpable tightness lateral quad and IT band PT-OP-G Mobility & Gait Start: 01/18/24 16:16 Freq: Status: Active Protocol: Document 01/19/24 15:17 [facility] (Rec: 01/19/24 17:03 [facility] [id number]) OP Mobility Evaluation Transfers Sit to Stand painful, dec use left LE Functional Movements Lifting and Carrying unable Squats unable Running Assessment unable OP Gait Assessment Gait Gait Assistance Required: Independent Assistive Devices Assistive Device None Gait Deviations General Gait Pattern Antalgic Comments Gait Comments Patient instructed in use of cane and trekking pole, preferred pole. Instructed in correct fit and use Stair Climbing Evaluation Evaluation Level of Assist On Stairs Independent Devices Stair Climbing Assistive Devices Left Railing,Right Railing Technique/Endurance Stair Climbing Technique Step to Step Comments Stair Climbing Comments painful PT-OP-J Posture/Palpation/Skin Start: 01/18/24 16:16 Freq: Status: Active Protocol: Document 01/19/24 15:17 [facility] (Rec: 01/19/24 17:03 [facility] [id number]) Posture Evaluation Position Standing Patellar Posture (L) Laterally Tilted Palpation Assessment Location One Palpation Location left knee Palpation Findings Edema Palpation Details puffy and boggy texture of swelling. No redness or warmth. PT-OP-K Range of Motion Start: 01/18/24 16:16 Freq: Status: Active Protocol: Document 01/19/24 15:17 [facility] (Rec: 01/19/24 17:03 [facility] [id number]) Hip Goniometric Range of Motion Hip myra Hip ROM WFL Yes Knee Goniometric Range of Motion Knee Left Flexion Active (degrees) 90 Extension Active (degrees) 20 Right Flexion Active (degrees) 150 Extension Active (degrees) 0 Hyper-Extension Active 5 Knee ROM Limitations Knee ROM Limitations Pain,Swelling Ankle and Foot Goniometric Range of Motion Ankle and Foot myra Ankle/Foot ROM WFL Yes PT-OP-L Special Tests Start: 01/18/24 16:16 Freq: Status: Active Protocol: Document 01/19/24 15:17 [facility] (Rec: 01/19/24 17:03 [facility] [id number]) Special Tests Knee Special Tests Patellar Grind Test Test Results + Valgus- 25 Degrees Test Results - Diana Test Test Results + Varus- 25 Degrees Test Results - PT-OP-M Strength Start: 01/18/24 16:16 Freq: Status: Active Protocol: Document 01/19/24 15:17 [facility] (Rec: 01/19/24 17:03 [facility] [id number]) Knee Strength Knee Manual Muscle Testing Left Flexion (S2) 3- Fair- Extension (L3) 3- Fair- Right Flexion (S2) 5 Normal Extension (L3) 5 Normal PT-OP-Q Treatments Start: 01/18/24 16:16 Freq: Status: Active Protocol: Document 01/26/24 14:38 [facility] (Rec: 01/26/24 16:22 [facility] [id number]) Cardio Equipment Recumbent Stepper (Sci-Fit) Resistance 1 Seat Position 7 Gym Equipment Shuttle Recovery Unilateral Squats Resistance 50 Reps/Time 10x ea Bilateral Squats Resistance 50 Reps/Time 10x Shuttle Balance chains red Details f/b,side bal and weight shift Therapeutic Exercises Supine Exercises bridge Reps/Minutes 10x5 Comments substitute for prone hip ext Sidelying Exercises clamshell Reps/Minutes 10x5 Standing Exercises sidestepping Equipment Used L2 TB Reps/Minutes 5ft Comments discontinued due to pain Knee ext Resistance L2 TB Reps/Minutes 4x Comments poor tolerance, discontinued HC stretch Standing Exercise Name gastroc and soleus Equipment Used CONRAD Reps/Minutes 1x30 shallow squats Reps/Minutes 10x Comments mirror for visual feedback Gait Training Gait Activity 1 Description slow, heel/toe gait, no limp Device Used none Level of Assistance SBA, cues Surface firm Distance/Duration 2 min Manual Therapy Treatment Consent Patient gave verbal consent for manual Yes treatment Taping 1 Body Location left knee Treatment Focus edema reduction and facilitate patellar positioning more medially Type of Tape Kinesio Tape Skin Inspection intact Comments KT tape from chiropractor in place from today; 2 I strips. med and lat patella. PT provided 1 Y strip to facil medial glide patella and 2 fan strips for edema reduction Self-Care/Home Management Treatment Education Patient Education Home Exercise Program PT-OP-R Modalities Start: 01/18/24 16:16 Freq: Status: Active Protocol: Document 01/26/24 14:38 [facility] (Rec: 01/26/24 16:22 [facility] [id number]) Electric Stimulation Electric Stimulation Interferential Current (IFC) Body Location left knee Intensity 26 Target/Sweep Sweep Patient Position Hooklying Combined With Heat/Cold Cold Pack PT-OP-T Assessment and Plan Start: 01/18/24 16:16 Freq: Status: Active Protocol: Document 01/26/24 14:38 [facility] (Rec: 01/26/24 16:22 [facility] [id number]) Physical Therapy Assessment Impairments Impairments Activity Tolerance,Edema,Gait, Pain,Soft Tissue Mobility, Strength Goals 3 Impairment left LE weakness Short Term Goal (STG) Instruct in HEP for purposes of strengthening left LE STG Duration 02/24/24 Care Home Goal (LTG) Patient to be independent and compliant with HEP and demosntrate improvement in LE strength to at least 4+/5 2 Impairment lower extremity functional scale 47% Short Term Goal (STG) Improve score to at least 60% as measure of improved activitiy tolerance and left LE function STG Duration 02/24/24 Application Systems Administrator Goal (LTG) Improve score to at least 75% as measure of improved activity tolerance and left LE function LTG Duration 03/26/24 1 Impairment left knee pain as high as 8/10 , antalgic gait, difficulty on stairs Short Term Goal (STG) Decrease pain by at least 50% STG Duration 02/24/24 Care Home Goal (LTG) Decrease pain by at least 75% with all usual activities and demonstrate ability to walk at normal speed without limp and alternate feet on stairs with ease LTG Duration 03/26/2524 Assessment Summary Assessment Overall improving, trial standing knee extension with TB not tolerated. Trial shuttle leg press with fair tolerance, improved with manual patellar stab as not taped after chiro treatment. Gait lacks terminal knee extension left. Swelling decreased but persists. Decreased pain and improved stability reported with KT tape. Physical Therapy Plan Frequency and Duration Frequency of Treatment 2x/Week Duration of treatment (weeks) 12 Plan of Care Start Date 01/19/24 Plan of Care End Date 04/18/24 Therapeutic Interventions Therapeutic Interventions Home Exercise Program,Manual Therapy,Neuromuscular Re- education,Patient/Caregiver Education,Self-Care/Home Management,Soft Tissue Mobilization,Taping, Therapeutic Activities, Therapeutic Exercises Modalities Cold Pack/Ice Massage,Electric Stimulation,Hot Packs, Iontophoresis,Ultrasound Next Visit Focus/Plan Next Note Type Treatment Note Next Visit Plan Measure knee joint circumference left. Trial upright exercise bike with encouragement for hamstring engagement. SAQ. Modalities and manual therapy PRN. Look at prox and distal tib fib. Patellar mobilizations.
--- NOTE | 2024-01-30 15:18 | PT.OTN ---
Current Diagnoses Other bursitis of knee, left knee (01/30/24) Difficulty in walking, not elsewhere classified (01/30/24) Weakness (01/30/24) Edema, unspecified (01/30/24) Physical Therapy Treatment Note PT-OP-A Visit Information Start: 01/18/24 16:16 Freq: Status: Active Protocol: Document 01/30/24 14:38 SP (Rec: 01/30/24 15:51 SP [id number]) Out-Patient Physical Therapy Visit Information Visit Information Visit Type Treatment Note Visit Start Time 14:38 Visit Stop Time 15:18 Visit Number 4 Number of [employer]CRA[employer] SHIPPING CHECKER Visits 1 Evaluation Information Evaluation Date 01/15/24 Precautions Precautions osteoporosis, history br CA with myra mastectomies PT-OP-B Current Condition Start: 01/18/24 16:16 Freq: Status: Active Protocol: Document 01/26/24 14:38 SAK (Rec: 01/26/24 16:22 SAK [id number]) Current Condition History of Current Condition Onset Date 5 weeks Current Complaints L knee pain History of Current Condition sudden onset left knee pain, started with a little fluid filled bump below knee, then helped friend moving boxes, next day very puffy, couldn't move it. At end of summer started doing some lunges and squats and had similar thing. Chiropracter did laser and taping and alternating ice and heat. This time has had 2 laser and tape treatments but hasn't gotten better yet. States thought she was being careful with alignment and technique. Now getting compensatory soreness. Can't straighten knee all the way. Tried a knee brace, not helpful Feels it is going to give out. Can't bend beyond 90 degrees, feels crackling. Prior Treatments and Tests x-ray: no report yet. PT-OP-C Subjective Start: 01/18/24 16:16 Freq: Status: Active Protocol: Document 01/30/24 14:38 SP (Rec: 01/30/24 15:51 SP [id number]) OP-PT Subjective Patient Comments Patient Comments Pt continues to have swelling L superior patella and anterolateral tib plateau , but feels little better. PT-OP-F Manual Assessment Start: 01/18/24 16:16 Freq: Status: Active Protocol: Document 01/19/24 15:17 SAK (Rec: 01/19/24 17:03 SAK [id number]) Manual Assessments Soft Tissue Assessment Soft Tissue Mobility Assessment palpable tightness lateral quad and IT band PT-OP-G Mobility & Gait Start: 01/18/24 16:16 Freq: Status: Active Protocol: Document 01/19/24 15:17 [facility] (Rec: 01/19/24 17:03 [facility] [id number]) OP Mobility Evaluation Transfers Sit to Stand painful, dec use left LE Functional Movements Lifting and Carrying unable Squats unable Running Assessment unable OP Gait Assessment Gait Gait Assistance Required: Independent Assistive Devices Assistive Device None Gait Deviations General Gait Pattern Antalgic Comments Gait Comments Patient instructed in use of cane and trekking pole, preferred pole. Instructed in correct fit and use Stair Climbing Evaluation Evaluation Level of Assist On Stairs Independent Devices Stair Climbing Assistive Devices Left Railing,Right Railing Technique/Endurance Stair Climbing Technique Step to Step Comments Stair Climbing Comments painful PT-OP-J Posture/Palpation/Skin Start: 01/18/24 16:16 Freq: Status: Active Protocol: Document 01/19/24 15:17 [facility] (Rec: 01/19/24 17:03 [facility] [id number]) Posture Evaluation Position Standing Patellar Posture (L) Laterally Tilted Palpation Assessment Location One Palpation Location left knee Palpation Findings Edema Palpation Details puffy and boggy texture of swelling. No redness or warmth. PT-OP-K Range of Motion Start: 01/18/24 16:16 Freq: Status: Active Protocol: Document 01/19/24 15:17 [facility] (Rec: 01/19/24 17:03 [facility] [id number]) Hip Goniometric Range of Motion Hip ymra Hip ROM WFL Yes Knee Goniometric Range of Motion Knee Left Flexion Active (degrees) 90 Extension Active (degrees) 20 Right Flexion Active (degrees) 150 Extension Active (degrees) 0 Hyper-Extension Active 5 Knee ROM Limitations Knee ROM Limitations Pain,Swelling Ankle and Foot Goniometric Range of Motion Ankle and Foot myra Ankle/Foot ROM WFL Yes PT-OP-L Special Tests Start: 01/18/24 16:16 Freq: Status: Active Protocol: Document 01/19/24 15:17 [facility] (Rec: 01/19/24 17:03 [facility] [id number]) Special Tests Knee Special Tests Patellar Grind Test Test Results + Valgus- 25 Degrees Test Results - Diana Test Test Results + Varus- 25 Degrees Test Results - PT-OP-M Strength Start: 01/18/24 16:16 Freq: Status: Active Protocol: Document 01/19/24 15:17 SAK (Rec: 01/19/24 17:03 SAK [id number]) Knee Strength Knee Manual Muscle Testing Left Flexion (S2) 3- Fair- Extension (L3) 3- Fair- Right Flexion (S2) 5 Normal Extension (L3) 5 Normal PT-OP-Q Treatments Start: 01/18/24 16:16 Freq: Status: Active Protocol: Document 01/30/24 14:38 SP (Rec: 01/30/24 15:51 SP [id number]) Therapeutic Exercises Supine Exercises piriformis stretch Supine Exercise Name reviewed self stretch Side left Reps/Minutes 30 SH x2 HS isometric heel dig Supine Exercise Name Progression HS HEP- declined HO Side left Reps/Minutes 5 SH x8 Comments cued ankle EV neutral, slight DFvs neutral pull back SAQ Supine Exercise Name reviewed Equipment Used Knee over foam roller Reps/Minutes 10x5 - not able hold longer without feel hyperextending Comments monitor pain range bridge Supine Exercise Name progression strengthening holds Reps/Minutes 10x5> 10 x 10 Comments substitute for prone hip ext Sidelying Exercises clamshell Sidelying Exercise Name progression strength HEP Side left Resistance AROM> TB #1 Reps/Minutes 10x5 Comments good alignment, form. Standing Exercises calf raises Standing Exercise Name verbal review self heel raises front step- view next tx Side bilateral Resistance AROM Equipment Used rail support Comments calf & Distal HS strengthening Manual Therapy Treatment Consent Patient gave verbal consent for manual Yes treatment Soft Tissue Mobilization lower leg Body Location L lateral gastroc, soleus, peroneal Mobilization Type Rolling,Sustained Pressure, Other Body Position hooklying unsupported Comments STM and MWM DF/ eccentric return. Taping 1 Body Location left knee Treatment Focus edema reduction and facilitate patellar positioning more medially Type of Tape Kinesio Tape Skin Inspection intact Comments Pt headed to chiropractor after PT today and will be doing needling so not want to apply in PT; Educational review for self application: 2 I to fanned strips superior<>inferior over inferior lat tib plateau and superior quad& mid patella. 1 lat> med patella stability. PT provided 1 Y strip to facil medial glide patella and 2 fan strips for edema reduction . Self-Care/Home Management Treatment Education Patient Education Joint Protection,Pain Management,Safety Other Education Assess progression in swelling , Circumference L knee: Mid patella- 38 cm 5 cm above sup patella- 41cm 5 cm below inf patella- 32.6 cm AROM L knee supine: 2-127 deg flexion Discussion carryover portable bike rollator for HS activation. PT-OP-R Modalities Start: 01/18/24 16:16 Freq: Status: Active Protocol: Document 01/30/24 14:38 SP (Rec: 01/30/24 15:51 SP [id number]) Electric Stimulation Electric Stimulation Interferential Current (IFC) Body Location left knee Intensity 24>28 Target/Sweep Sweep Patient Position Hooklying Combined With Heat/Cold Cold Pack Comments LEs over wedge PT-OP-T Assessment and Plan Start: 01/18/24 16:16 Freq: Status: Active Protocol: Document 01/30/24 14:38 SP (Rec: 01/30/24 15:51 SP [id number]) Physical Therapy Assessment Goals 3 Impairment left LE weakness Short Term Goal (STG) Instruct in HEP for purposes of strengthening left LE STG Duration 02/24/24 Long-Term Goal (LTG) Patient to be independent and compliant with HEP and demosntrate improvement in LE strength to at least 4+/5 2 Impairment lower extremity functional scale 47% Short Term Goal (STG) Improve score to at least 60% as measure of improved activitiy tolerance and left LE function STG Duration 02/24/24 Fire Extinguisher Mechanic Goal (LTG) Improve score to at least 75% as measure of improved activity tolerance and left LE function LTG Duration 03/26/24 1 Impairment left knee pain as high as 8/10 , antalgic gait, difficulty on stairs Short Term Goal (STG) Decrease pain by at least 50% STG Duration 02/24/24 Fire Extinguisher Mechanic Goal (LTG) Decrease pain by at least 75% with all usual activities and demonstrate ability to walk at normal speed without limp and alternate feet on stairs with ease LTG Duration 03/26/2524 Assessment Summary Assessment Tolerance progression resistance HEP clamshell and AROM supine longer holds. Initiated isometric HS activation hooklying, cues for foot //alignment for support reducation hyperextension reports feels alot. Education for knee extension heel strike end tx walking away after Estim and CP L knee stiff. Physical Therapy Plan Frequency and Duration Frequency of Treatment 2x/Week Duration of treatment (weeks) 12 Plan of Care Start Date 01/19/24 Plan of Care End Date 04/18/24 Therapeutic Interventions Therapeutic Interventions Home Exercise Program,Manual Therapy,Neuromuscular Re- education,Patient/Caregiver Education,Self-Care/Home Management,Soft Tissue Mobilization,Taping, Therapeutic Activities, Therapeutic Exercises Modalities Cold Pack/Ice Massage,Electric Stimulation,Hot Packs, Iontophoresis,Ultrasound Next Visit Focus/Plan Next Note Type Treatment Note Next Visit Plan Re Measure L knee joint circumference. Next: Trial upright exercise bike with encouragement for hamstring engagement. Recheck HS isometric, SAQ. Modalities and manual therapy PRN. Look at prox and distal tib fib. Patellar mobilizations. Ktaping needed swelling & patellar mobility.
--- NOTE | 2024-02-02 15:21 | PT.OTN ---
Addendum entered and electronically signed by Vida Estrella, TIP BANDING MACHINE OPERATOR 02/02/24 15:56: Pt stated is feeling little crepitus under R knee now descending stairs. Original Note: Current Diagnoses Other bursitis of knee, left knee (02/02/24) Difficulty in walking, not elsewhere classified (02/02/24) Weakness (02/02/24) Edema, unspecified (02/02/24) Physical Therapy Treatment Note PT-OP-A Visit Information Start: 01/18/24 16:16 Freq: Status: Active Protocol: Document 02/02/24 14:35 SP (Rec: 02/02/24 15:55 SP [id number]) Out-Patient Physical Therapy Visit Information Visit Information Visit Type Treatment Note Visit Start Time 14:35 Visit Stop Time 15:21 Visit Number 5 Number of TIP BANDING MACHINE OPERATOR Visits 2 Evaluation Information Evaluation Date 01/15/24 Precautions Precautions osteoporosis, history br CA with myra mastectomies PT-OP-B Current Condition Start: 01/18/24 16:16 Freq: Status: Active Protocol: Document 01/26/24 14:38 SAK (Rec: 01/26/24 16:22 SAK [id number]) Current Condition History of Current Condition Onset Date 5 weeks Current Complaints L knee pain History of Current Condition sudden onset left knee pain, started with a little fluid filled bump below knee, then helped friend moving boxes, next day very puffy, couldn't move it. At end of summer started doing some lunges and squats and had similar thing. Chiropracter did laser and taping and alternating ice and heat. This time has had 2 laser and tape treatments but hasn't gotten better yet. States thought she was being careful with alignment and technique. Now getting compensatory soreness. Can't straighten knee all the way. Tried a knee brace, not helpful Feels it is going to give out. Can't bend beyond 90 degrees, feels crackling. Prior Treatments and Tests x-ray: no report yet. PT-OP-C Subjective Start: 01/18/24 16:16 Freq: Status: Active Protocol: Document 02/02/24 14:35 SP (Rec: 02/02/24 15:55 SP [id number]) OP-PT Subjective Patient Comments Patient Comments Pt reports feels the swelling has gone down with PT, acupuncture and chiropractor laser therapies. She has 1 more laser appt tomorrow am. She retaped later day 17 and helping but wants retaped today for patella support and swelling. PT-OP-F Manual Assessment Start: 01/18/24 16:16 Freq: Status: Active Protocol: Document 01/19/24 15:17 SAK (Rec: 01/19/24 17:03 [facility] [id number]) Manual Assessments Soft Tissue Assessment Soft Tissue Mobility Assessment palpable tightness lateral quad and IT band PT-OP-G Mobility & Gait Start: 01/18/24 16:16 Freq: Status: Active Protocol: Document 01/19/24 15:17 SAK (Rec: 01/19/24 17:03 [facility] [id number]) OP Mobility Evaluation Transfers Sit to Stand painful, dec use left LE Functional Movements Lifting and Carrying unable Squats unable Running Assessment unable OP Gait Assessment Gait Gait Assistance Required: Independent Assistive Devices Assistive Device None Gait Deviations General Gait Pattern Antalgic Comments Gait Comments Patient instructed in use of cane and trekking pole, preferred pole. Instructed in correct fit and use Stair Climbing Evaluation Evaluation Level of Assist On Stairs Independent Devices Stair Climbing Assistive Devices Left Railing,Right Railing Technique/Endurance Stair Climbing Technique Step to Step Comments Stair Climbing Comments painful PT-OP-J Posture/Palpation/Skin Start: 01/18/24 16:16 Freq: Status: Active Protocol: Document 01/19/24 15:17 SAK (Rec: 01/19/24 17:03 [facility] [id number]) Posture Evaluation Position Standing Patellar Posture (L) Laterally Tilted Palpation Assessment Location One Palpation Location left knee Palpation Findings Edema Palpation Details puffy and boggy texture of swelling. No redness or warmth. PT-OP-K Range of Motion Start: 01/18/24 16:16 Freq: Status: Active Protocol: Document 01/19/24 15:17 SAK (Rec: 01/19/24 17:03 [facility] [id number]) Hip Goniometric Range of Motion Hip myra Hip ROM WFL Yes Knee Goniometric Range of Motion Knee Left Flexion Active (degrees) 90 Extension Active (degrees) 20 Right Flexion Active (degrees) 150 Extension Active (degrees) 0 Hyper-Extension Active 5 Knee ROM Limitations Knee ROM Limitations Pain,Swelling Ankle and Foot Goniometric Range of Motion Ankle and Foot myra Ankle/Foot ROM WFL Yes PT-OP-L Special Tests Start: 01/18/24 16:16 Freq: Status: Active Protocol: Document 01/19/24 15:17 SAK (Rec: 01/19/24 17:03 SAK [id number]) Special Tests Knee Special Tests Patellar Grind Test Test Results + Valgus- 25 Degrees Test Results - Diana Test Test Results + Varus- 25 Degrees Test Results - PT-OP-M Strength Start: 01/18/24 16:16 Freq: Status: Active Protocol: Document 01/19/24 15:17 SAK (Rec: 01/19/24 17:03 SAK [id number]) Knee Strength Knee Manual Muscle Testing Left Flexion (S2) 3- Fair- Extension (L3) 3- Fair- Right Flexion (S2) 5 Normal Extension (L3) 5 Normal PT-OP-Q Treatments Start: 01/18/24 16:16 Freq: Status: Active Protocol: Document 02/02/24 14:35 SP (Rec: 02/02/24 15:55 SP [id number]) Therapeutic Exercises Supine Exercises HS isometric heel dig Supine Exercise Name Progression HS isometric HEP- declined HO Side left Equipment Used reviewed Reps/Minutes 5 SH x10 Comments cued improve EV /c slight DF neutral pull back SAQ Supine Exercise Name reviewed Side left Equipment Used Knee over foam roller Reps/Minutes 10x5 Comments monitor pain free range SLR Reps/Minutes 10x Comments cues for straight knee Sidelying Exercises hip add Side left Resistance AROM Reps/Minutes 10x5 hip ab Side left Resistance aROM Reps/Minutes 10x5 Comments occ cues TKE Sitting Exercises LAQ Sitting Exercise Name /c [place]i stim Side left Reps/Minutes 4 min Comments 5/5 duty cycle, cued light quad contraction into painfree extension Manual Therapy Treatment Consent Patient gave verbal consent for manual Yes treatment Soft Tissue Mobilization leg Body Location L RF, VMO Mobilization Type Myofascial Release,Rolling Body Position Hooklying Comments knee slight flexion lower leg Body Location L lateral gastroc, soleus, peroneal Mobilization Type Rolling,Sustained Pressure, Other Body Position hooklying unsupported Comments STM and MWM DF/ eccentric return. Joint Mobilizations L knee Joint tibfib PA inflex, Tibiofemoral PA in flexion, AP in extension not tolerated Grade II Body Position Hooklying Reps/Duration 2 Comments gentle small range mobility. Taping 1 Body Location L knee, R knee Treatment Focus Facilitate patellar positioning more medially Type of Tape Kinesio Tape Skin Inspection intact Comments Educational review for self application: L knee: 2 I to fanned strips superior<>inferior over inferior lat tib plateau and superior quad& mid patella. 1 lat> med patella stability. PT provided 2 Y strip inf>sup and sup>inf quad, 1 Y lat>med to facil medial glide patella stability R knee: Self-Care/Home Management Treatment Education Patient Education Joint Protection,Pain Management,Safety Other Education Assess progression in swelling reduction, Circumference L knee: Mid patella- 38 cm (no change) 5 cm above sup patella- 39.2 cm (reduced by 0.8) 5 cm below inf patella- 34 cm Circumferance R knee: Mid:37 cm 5cm above: 39 cm 5 cm below: 34.2 cm AROM L knee supine: 2 deg ext relaxed 0-1deg TKE but pressure behind patella-134 deg flexion (gain 7 deg flexion & 1 deg ext) Discussion carryover portable bike rollator for HS activation. PT-OP-R Modalities Start: 01/18/24 16:16 Freq: Status: Active Protocol: Document 02/02/24 14:35 SP (Rec: 02/02/24 15:55 SP [id number]) Electric Stimulation Electric Stimulation Bahraini Stim Body Location L VMO during LAQ Intensity 23 Comments 4 min 5/5 PT-OP-T Assessment and Plan Start: 01/18/24 16:16 Freq: Status: Active Protocol: Document 02/02/24 14:35 SP (Rec: 02/02/24 15:55 SP [id number]) Physical Therapy Assessment Goals 3 Impairment left LE weakness Short Term Goal (STG) Instruct in HEP for purposes of strengthening left LE STG Duration 02/24/24 Residential Goal (LTG) Patient to be independent and compliant with HEP and demosntrate improvement in LE strength to at least 4+/5 2 Impairment lower extremity functional scale 47% Short Term Goal (STG) Improve score to at least 60% as measure of improved activitiy tolerance and left LE function STG Duration 02/24/24 Sports Information Director Goal (LTG) Improve score to at least 75% as measure of improved activity tolerance and left LE function LTG Duration 03/26/24 1 Impairment left knee pain as high as 8/10 , antalgic gait, difficulty on stairs Short Term Goal (STG) Decrease pain by at least 50% STG Duration 02/24/24 Sports Information Director Goal (LTG) Decrease pain by at least 75% with all usual activities and demonstrate ability to walk at normal speed without limp and alternate feet on stairs with ease LTG Duration 03/26/2524 Assessment Summary Assessment Pt making slow reduction in swelling by 0.8cm superior L patella, no change mid patella . Comparison R to L knee, L knee is 0.2 cm bigger than R. Pt improved reports of ROM: L knee extension gain 1 deg and 7 deg flexion since last tx. She improved VMO contraction post use Beninese stim this tx, regina MEJIAE during SLR ther ex . Provided taping L knee for patella stability Myra today. Cues for L knee extension heel toe and extension into heel strike gait phase. Physical Therapy Plan Frequency and Duration Frequency of Treatment 2x/Week Duration of treatment (weeks) 12 Plan of Care Start Date 01/19/24 Plan of Care End Date 04/18/24 Therapeutic Interventions Therapeutic Interventions Home Exercise Program,Manual Therapy,Neuromuscular Re- education,Patient/Caregiver Education,Self-Care/Home Management,Soft Tissue Mobilization,Taping, Therapeutic Activities, Therapeutic Exercises Modalities Cold Pack/Ice Massage,Electric Stimulation,Hot Packs, Iontophoresis,Ultrasound Other Referrals/Consults Referrals/Consults Recommended If not improved with PT feel further imaging may be indicated. Next Visit Focus/Plan Next Note Type Treatment Note Next Visit Plan Continue: Re Measure L knee joint circumference (selfcare values). Recheck HEP Next: Trial upright exercise bike with encouragement for hamstring engagement. Recheck HS isometric, SAQ LAQ. Modalities and manual therapy PRN. Look at prox and distal tib fib. Patellar mobilizations. Ktaping needed swelling & patellar mobility.
--- NOTE | 2024-02-06 15:46 | PT.OTN ---
Current Diagnoses Other bursitis of knee, left knee (02/06/24) Difficulty in walking, not elsewhere classified (02/06/24) Weakness (02/06/24) Edema, unspecified (02/06/24) Physical Therapy Treatment Note PT-OP-A Visit Information Start: 01/18/24 16:16 Freq: Status: Active Protocol: Document 02/06/24 13:46 SAK (Rec: 02/06/24 14:34 [facility] [id number]) Out-Patient Physical Therapy Visit Information Visit Information Visit Type Treatment Note Visit Start Time 13:47 Visit Stop Time 14:40 Visit Number 6 Number of GRAVEL ROOFER Visits 0 Evaluation Information Evaluation Date 01/15/24 Precautions Precautions osteoporosis, history br CA with myra mastectomies PT-OP-B Current Condition Start: 01/18/24 16:16 Freq: Status: Active Protocol: Document 01/26/24 14:38 SAK (Rec: 01/26/24 16:22 SAK [id number]) Current Condition History of Current Condition Onset Date 5 weeks Current Complaints L knee pain History of Current Condition sudden onset left knee pain, started with a little fluid filled bump below knee, then helped friend moving boxes, next day very puffy, couldn't move it. At end of summer started doing some lunges and squats and had similar thing. Chiropracter did laser and taping and alternating ice and heat. This time has had 2 laser and tape treatments but hasn't gotten better yet. States thought she was being careful with alignment and technique. Now getting compensatory soreness. Can't straighten knee all the way. Tried a knee brace, not helpful Feels it is going to give out. Can't bend beyond 90 degrees, feels crackling. Prior Treatments and Tests x-ray: no report yet. PT-OP-C Subjective Start: 01/18/24 16:16 Freq: Status: Active Protocol: Document 02/06/24 13:46 SAK (Rec: 02/06/24 14:34 [facility] [id number]) OP-PT Subjective Patient Comments Patient Comments Can't fully straighten knee still, painful, still feels unstable. Crackling and popping sensations PT-OP-F Manual Assessment Start: 01/18/24 16:16 Freq: Status: Active Protocol: Document 01/19/24 15:17 SAK (Rec: 01/19/24 17:03 [facility] [id number]) Manual Assessments Soft Tissue Assessment Soft Tissue Mobility Assessment palpable tightness lateral quad and IT band PT-OP-G Mobility & Gait Start: 01/18/24 16:16 Freq: Status: Active Protocol: Document 01/19/24 15:17 [facility] (Rec: 01/19/24 17:03 [facility] [id number]) OP Mobility Evaluation Transfers Sit to Stand painful, dec use left LE Functional Movements Lifting and Carrying unable Squats unable Running Assessment unable OP Gait Assessment Gait Gait Assistance Required: Independent Assistive Devices Assistive Device None Gait Deviations General Gait Pattern Antalgic Comments Gait Comments Patient instructed in use of cane and trekking pole, preferred pole. Instructed in correct fit and use Stair Climbing Evaluation Evaluation Level of Assist On Stairs Independent Devices Stair Climbing Assistive Devices Left Railing,Right Railing Technique/Endurance Stair Climbing Technique Step to Step Comments Stair Climbing Comments painful PT-OP-J Posture/Palpation/Skin Start: 01/18/24 16:16 Freq: Status: Active Protocol: Document 01/19/24 15:17 [facility] (Rec: 01/19/24 17:03 [facility] [id number]) Posture Evaluation Position Standing Patellar Posture (L) Laterally Tilted Palpation Assessment Location One Palpation Location left knee Palpation Findings Edema Palpation Details puffy and boggy texture of swelling. No redness or warmth. PT-OP-K Range of Motion Start: 01/18/24 16:16 Freq: Status: Active Protocol: Document 01/19/24 15:17 [facility] (Rec: 01/19/24 17:03 [facility] [id number]) Hip Goniometric Range of Motion Hip myra Hip ROM WFL Yes Knee Goniometric Range of Motion Knee Left Flexion Active (degrees) 90 Extension Active (degrees) 20 Right Flexion Active (degrees) 150 Extension Active (degrees) 0 Hyper-Extension Active 5 Knee ROM Limitations Knee ROM Limitations Pain,Swelling Ankle and Foot Goniometric Range of Motion Ankle and Foot myra Ankle/Foot ROM WFL Yes PT-OP-L Special Tests Start: 01/18/24 16:16 Freq: Status: Active Protocol: Document 01/19/24 15:17 [facility] (Rec: 01/19/24 17:03 [facility] [id number]) Special Tests Knee Special Tests Patellar Grind Test Test Results + Valgus- 25 Degrees Test Results - Diana Test Test Results + Varus- 25 Degrees Test Results - PT-OP-M Strength Start: 01/18/24 16:16 Freq: Status: Active Protocol: Document 01/19/24 15:17 SAK (Rec: 01/19/24 17:03 [facility] [id number]) Knee Strength Knee Manual Muscle Testing Left Flexion (S2) 3- Fair- Extension (L3) 3- Fair- Right Flexion (S2) 5 Normal Extension (L3) 5 Normal PT-OP-Q Treatments Start: 01/18/24 16:16 Freq: Status: Active Protocol: Document 02/06/24 13:46 SAK (Rec: 02/06/24 14:34 [facility] [id number]) Cardio Equipment Recumbent Bicycle Duration (Minutes) 3 Resistance 2 Seat Position 5 Bicycle (Upright) Duration (Minutes) 5 Resistance 2 Seat Position 5 Therapeutic Exercises Supine Exercises HS isometric heel dig Side bilateral Equipment Used therapy ball 55 cm under heels Reps/Minutes 5 SH x10 Comments cued improve EV /c slight DF neutral pull back SAQ Supine Exercise Name reviewed Side left Equipment Used Knee over foam roller Reps/Minutes 10x5 Comments monitor pain free range bridge Equipment Used feet on 55 cm ball Reps/Minutes 10x5 Comments substitute for prone hip ext Manual Therapy Treatment Soft Tissue Mobilization leg Body Location L RF, VMO Mobilization Type Myofascial Release,Rolling Body Position Hooklying Comments knee slight flexion lower leg Body Location L lateral gastroc, soleus, peroneal Mobilization Type Rolling,Sustained Pressure, Other Body Position hooklying unsupported Comments STM and MWM DF/ eccentric return. Taping 1 Body Location L knee Treatment Focus Facilitate patellar positioning more medially, edema reduction Type of Tape Kinesio Tape Skin Inspection intact Comments L knee: 2 fanned strips superior<>inferior over inferior lat tib plateau and superior quad& mid patella. 1 lat> med patella stability. Self-Care/Home Management Treatment Education Patient Education Joint Protection,Pain Management,Safety Other Education Reviewed lymphatic drainage Circumference L knee: Mid patella- 38.8 cm ( inc .8 in) 5 cm above sup patella- 40.2 cm (inc 1.0 ) 5 cm below inf patella- 34 cm (same) PT-OP-R Modalities Start: 01/18/24 16:16 Freq: Status: Active Protocol: Document 02/02/24 14:35 SP (Rec: 02/02/24 15:55 SP [id number]) Electric Stimulation Electric Stimulation Nigerian Stim Body Location L VMO during LAQ Intensity 23 Comments 4 min 5/5 PT-OP-T Assessment and Plan Start: 01/18/24 16:16 Freq: Status: Active Protocol: Document 02/06/24 13:46 [facility] (Rec: 02/06/24 14:34 SAK [id number]) Physical Therapy Assessment Goals 3 Impairment left LE weakness Short Term Goal (STG) Instruct in HEP for purposes of strengthening left LE STG Duration 02/24/24 Longterm Goal (LTG) Patient to be independent and compliant with HEP and demosntrate improvement in LE strength to at least 4+/5 2 Impairment lower extremity functional scale 47% Short Term Goal (STG) Improve score to at least 60% as measure of improved activitiy tolerance and left LE function STG Duration 02/24/24 Longterm Goal (LTG) Improve score to at least 75% as measure of improved activity tolerance and left LE function LTG Duration 03/26/24 1 Impairment left knee pain as high as 8/10 , antalgic gait, difficulty on stairs Short Term Goal (STG) Decrease pain by at least 50% STG Duration 02/24/24 Unix Analyst Goal (LTG) Decrease pain by at least 75% with all usual activities and demonstrate ability to walk at normal speed without limp and alternate feet on stairs with ease LTG Duration 03/26/2524 Assessment Summary Assessment Noted some increase in overall swelling, but observable and palpably decreased lateral knee in area of greatest pain. Pain persists, with lack of ability to extend fully especially with gait notable approx 20 deg, passively 12 deg lacking extension. Patient compliant to HEP. Added therapy ball for heel dig and bridge with good tolerance. KT tape focused lateral knee only today. Recommend further imaging due to slow progress. Physical Therapy Plan Frequency and Duration Frequency of Treatment 2x/Week Duration of treatment (weeks) 12 Plan of Care Start Date 01/19/24 Plan of Care End Date 04/18/24 Therapeutic Interventions Therapeutic Interventions Home Exercise Program,Manual Therapy,Neuromuscular Re- education,Patient/Caregiver Education,Self-Care/Home Management,Soft Tissue Mobilization,Taping, Therapeutic Activities, Therapeutic Exercises Modalities Cold Pack/Ice Massage,Electric Stimulation,Hot Packs, Iontophoresis,Ultrasound Other Referrals/Consults Referrals/Consults Recommended Recommended to patient that further imaging seems indicated; she reports she called and left a message regarding the same on her way to PT. Next Visit Focus/Plan Next Note Type Treatment Note Next Visit Plan Start session with recumbant ex bike (preferred over upright). Remeasure L knee joint circumference (selfcare values). Recheck HEP Modalities and manual therapy PRN. Patellar mobilizations. Ktaping needed swelling & patellar positioning.
--- NOTE | 2024-02-06 15:48 | PT.OTN ---
Current Diagnoses Other bursitis of knee, left knee (02/06/24) Difficulty in walking, not elsewhere classified (02/06/24) Weakness (02/06/24) Edema, unspecified (02/06/24) Physical Therapy Treatment Note PT-OP-A Visit Information Start: 01/18/24 16:16 Freq: Status: Active Protocol: Document 02/06/24 13:46 SAK (Rec: 02/06/24 14:34 [facility] [id number]) Out-Patient Physical Therapy Visit Information Visit Information Visit Type Treatment Note Visit Start Time 13:47 Visit Stop Time 14:40 Visit Number 6 Number of BUSINESS SUPPORT ASSOCIATE Visits 0 Evaluation Information Evaluation Date 01/15/24 Precautions Precautions osteoporosis, history br CA with myra mastectomies PT-OP-B Current Condition Start: 01/18/24 16:16 Freq: Status: Active Protocol: Document 01/26/24 14:38 SAK (Rec: 01/26/24 16:22 SAK [id number]) Current Condition History of Current Condition Onset Date 5 weeks Current Complaints L knee pain History of Current Condition sudden onset left knee pain, started with a little fluid filled bump below knee, then helped friend moving boxes, next day very puffy, couldn't move it. At end of summer started doing some lunges and squats and had similar thing. Chiropracter did laser and taping and alternating ice and heat. This time has had 2 laser and tape treatments but hasn't gotten better yet. States thought she was being careful with alignment and technique. Now getting compensatory soreness. Can't straighten knee all the way. Tried a knee brace, not helpful Feels it is going to give out. Can't bend beyond 90 degrees, feels crackling. Prior Treatments and Tests x-ray: no report yet. PT-OP-C Subjective Start: 01/18/24 16:16 Freq: Status: Active Protocol: Document 02/06/24 13:46 SAK (Rec: 02/06/24 14:34 [facility] [id number]) OP-PT Subjective Patient Comments Patient Comments Can't fully straighten knee still, painful, still feels unstable. Crackling and popping sensations PT-OP-F Manual Assessment Start: 01/18/24 16:16 Freq: Status: Active Protocol: Document 01/19/24 15:17 SAK (Rec: 01/19/24 17:03 [facility] [id number]) Manual Assessments Soft Tissue Assessment Soft Tissue Mobility Assessment palpable tightness lateral quad and IT band PT-OP-G Mobility & Gait Start: 01/18/24 16:16 Freq: Status: Active Protocol: Document 01/19/24 15:17 [facility] (Rec: 01/19/24 17:03 [facility] [id number]) OP Mobility Evaluation Transfers Sit to Stand painful, dec use left LE Functional Movements Lifting and Carrying unable Squats unable Running Assessment unable OP Gait Assessment Gait Gait Assistance Required: Independent Assistive Devices Assistive Device None Gait Deviations General Gait Pattern Antalgic Comments Gait Comments Patient instructed in use of cane and trekking pole, preferred pole. Instructed in correct fit and use Stair Climbing Evaluation Evaluation Level of Assist On Stairs Independent Devices Stair Climbing Assistive Devices Left Railing,Right Railing Technique/Endurance Stair Climbing Technique Step to Step Comments Stair Climbing Comments painful PT-OP-J Posture/Palpation/Skin Start: 01/18/24 16:16 Freq: Status: Active Protocol: Document 01/19/24 15:17 [facility] (Rec: 01/19/24 17:03 [facility] [id number]) Posture Evaluation Position Standing Patellar Posture (L) Laterally Tilted Palpation Assessment Location One Palpation Location left knee Palpation Findings Edema Palpation Details puffy and boggy texture of swelling. No redness or warmth. PT-OP-K Range of Motion Start: 01/18/24 16:16 Freq: Status: Active Protocol: Document 01/19/24 15:17 [facility] (Rec: 01/19/24 17:03 [facility] [id number]) Hip Goniometric Range of Motion Hip myra Hip ROM WFL Yes Knee Goniometric Range of Motion Knee Left Flexion Active (degrees) 90 Extension Active (degrees) 20 Right Flexion Active (degrees) 150 Extension Active (degrees) 0 Hyper-Extension Active 5 Knee ROM Limitations Knee ROM Limitations Pain,Swelling Ankle and Foot Goniometric Range of Motion Ankle and Foot myra Ankle/Foot ROM WFL Yes PT-OP-L Special Tests Start: 01/18/24 16:16 Freq: Status: Active Protocol: Document 01/19/24 15:17 [facility] (Rec: 01/19/24 17:03 [facility] [id number]) Special Tests Knee Special Tests Patellar Grind Test Test Results + Valgus- 25 Degrees Test Results - Diana Test Test Results + Varus- 25 Degrees Test Results - PT-OP-M Strength Start: 01/18/24 16:16 Freq: Status: Active Protocol: Document 01/19/24 15:17 [facility] (Rec: 01/19/24 17:03 [facility] [id number]) Knee Strength Knee Manual Muscle Testing Left Flexion (S2) 3- Fair- Extension (L3) 3- Fair- Right Flexion (S2) 5 Normal Extension (L3) 5 Normal PT-OP-Q Treatments Start: 01/18/24 16:16 Freq: Status: Active Protocol: Document 02/06/24 13:46 [facility] (Rec: 02/06/24 14:34 [facility] [id number]) Cardio Equipment Recumbent Bicycle Duration (Minutes) 3 Resistance 2 Seat Position 5 Bicycle (Upright) Duration (Minutes) 5 Resistance 2 Seat Position 5 Therapeutic Exercises Supine Exercises HS isometric heel dig Side bilateral Equipment Used therapy ball 55 cm under heels Reps/Minutes 5 SH x10 Comments cued improve EV /c slight DF neutral pull back SAQ Supine Exercise Name reviewed Side left Equipment Used Knee over foam roller Reps/Minutes 10x5 Comments monitor pain free range bridge Equipment Used feet on 55 cm ball Reps/Minutes 10x5 Comments substitute for prone hip ext Manual Therapy Treatment Soft Tissue Mobilization leg Body Location L RF, VMO Mobilization Type Myofascial Release,Rolling Body Position Hooklying Comments knee slight flexion lower leg Body Location L lateral gastroc, soleus, peroneal Mobilization Type Rolling,Sustained Pressure, Other Body Position hooklying unsupported Comments STM and MWM DF/ eccentric return. Taping 1 Body Location L knee Treatment Focus Facilitate patellar positioning more medially, edema reduction Type of Tape Kinesio Tape Skin Inspection intact Comments L knee: 2 fanned strips superior<>inferior over inferior lat tib plateau and superior quad& mid patella. 1 lat> med patella stability. Self-Care/Home Management Treatment Education Patient Education Joint Protection,Pain Management,Safety Other Education Reviewed lymphatic drainage Circumference L knee: Mid patella- 38.8 cm ( inc .8 in) 5 cm above sup patella- 40.2 cm (inc 1.0 ) 5 cm below inf patella- 34 cm (same) PT-OP-R Modalities Start: 01/18/24 16:16 Freq: Status: Active Protocol: Document 02/06/24 13:46 [facility] (Rec: 02/06/24 15:48 [facility] [id number]) Electric Stimulation Electric Stimulation Interferential Current (IFC) Body Location left knee Intensity 20 Target/Sweep Sweep Combined With Heat/Cold Cold Pack PT-OP-T Assessment and Plan Start: 01/18/24 16:16 Freq: Status: Active Protocol: Document 02/06/24 13:46 [facility] (Rec: 02/06/24 14:34 [facility] [id number]) Physical Therapy Assessment Goals 3 Impairment left LE weakness Short Term Goal (STG) Instruct in HEP for purposes of strengthening left LE STG Duration 02/24/24 Record Tester Goal (LTG) Patient to be independent and compliant with HEP and demosntrate improvement in LE strength to at least 4+/5 2 Impairment lower extremity functional scale 47% Short Term Goal (STG) Improve score to at least 60% as measure of improved activitiy tolerance and left LE function STG Duration 02/24/24 Longterm Goal (LTG) Improve score to at least 75% as measure of improved activity tolerance and left LE function LTG Duration 03/26/24 1 Impairment left knee pain as high as 8/10 , antalgic gait, difficulty on stairs Short Term Goal (STG) Decrease pain by at least 50% STG Duration 02/24/24 Record Tester Goal (LTG) Decrease pain by at least 75% with all usual activities and demonstrate ability to walk at normal speed without limp and alternate feet on stairs with ease LTG Duration 03/26/2524 Assessment Summary Assessment Noted some increase in overall swelling, but observable and palpably decreased lateral knee in area of greatest pain. Pain persists, with lack of ability to extend fully especially with gait notable approx 20 deg, passively 12 deg lacking extension. Patient compliant to HEP. Added therapy ball for heel dig and bridge with good tolerance. KT tape focused lateral knee only today. Recommend further imaging due to slow progress. Physical Therapy Plan Frequency and Duration Frequency of Treatment 2x/Week Duration of treatment (weeks) 12 Plan of Care Start Date 01/19/24 Plan of Care End Date 04/18/24 Therapeutic Interventions Therapeutic Interventions Home Exercise Program,Manual Therapy,Neuromuscular Re- education,Patient/Caregiver Education,Self-Care/Home Management,Soft Tissue Mobilization,Taping, Therapeutic Activities, Therapeutic Exercises Modalities Cold Pack/Ice Massage,Electric Stimulation,Hot Packs, Iontophoresis,Ultrasound Other Referrals/Consults Referrals/Consults Recommended Recommended to patient that further imaging seems indicated; she reports she called and left a message regarding the same on her way to PT. Next Visit Focus/Plan Next Note Type Treatment Note Next Visit Plan Start session with recumbant ex bike (preferred over upright). Remeasure L knee joint circumference (selfcare values). Recheck HEP Modalities and manual therapy PRN. Patellar mobilizations. Ktaping needed swelling & patellar positioning.
--- NOTE | 2024-02-14 12:15 | PT.OTN ---
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 At end of summer started doing some lunges and squats and had similar thing. Chiropracter did laser and taping and alternating ice and heat. This time has had 2 laser and tape treatments but hasn't gotten better yet. States thought she was being careful with alignment and technique. Now getting compensatory soreness. Can't straighten knee all the way. Tried a knee brace, not helpful Feels it is going to give out. Can't bend beyond 90 degrees, feels crackling. Prior Treatments and Tests x-ray: no report yet. PT-OP-C Subjective Start: 01/18/24 16:16 Freq: Status: Active Protocol: Document 02/14/24 11:34 SP (Rec: 02/14/24 12:28 SP [id number]) OP-PT Subjective Patient Comments Patient Comments Pt reports can walk down street and back and using modalities. Still pain asc/ descending and if should push through or step to at this time. PT-OP-F Manual Assessment Start: 01/18/24 16:16 Freq: Status: Active Protocol: Document 01/19/24 15:17 SAK (Rec: 01/19/24 17:03 [facility] [id number]) Manual Assessments Soft Tissue Assessment Soft Tissue Mobility Assessment palpable tightness lateral quad and IT band PT-OP-G Mobility & Gait Start: 01/18/24 16:16 Freq: Status: Active Protocol: Document 01/19/24 15:17 [facility] (Rec: 01/19/24 17:03 [facility] [id number]) OP Mobility Evaluation Transfers Sit to Stand painful, dec use left LE Functional Movements Lifting and Carrying unable Squats unable Running Assessment unable OP Gait Assessment Gait Gait Assistance Required: Independent Assistive Devices Assistive Device None Gait Deviations General Gait Pattern Antalgic Comments Gait Comments Patient instructed in use of cane and trekking pole, preferred pole. Instructed in correct fit and use Stair Climbing Evaluation Evaluation Level of Assist On Stairs Independent Devices Stair Climbing Assistive Devices Left Railing,Right Railing Technique/Endurance Stair Climbing Technique Step to Step Comments Stair Climbing Comments painful PT-OP-J Posture/Palpation/Skin Start: 01/18/24 16:16 Freq: Status: Active Protocol: Document 01/19/24 15:17 [facility] (Rec: 01/19/24 17:03 [facility] [id number]) Posture Evaluation Position Standing Patellar Posture (L) Laterally Tilted Palpation Assessment Location One Palpation Location left knee Palpation Findings Edema Palpation Details puffy and boggy texture of swelling. No redness or warmth. PT-OP-K Range of Motion Start: 01/18/24 16:16 Freq: Status: Active Protocol: Document 01/19/24 15:17 [facility] (Rec: 01/19/24 17:03 [facility] [id number]) Hip Goniometric Range of Motion Hip myra Hip ROM WFL Yes Knee Goniometric Range of Motion Knee Left Flexion Active (degrees) 90 Extension Active (degrees) 20 Right Flexion Active (degrees) 150 Extension Active (degrees) 0 Hyper-Extension Active 5 Knee ROM Limitations Knee ROM Limitations Pain,Swelling Ankle and Foot Goniometric Range of Motion Ankle and Foot myra Ankle/Foot ROM WFL Yes PT-OP-L Special Tests Start: 01/18/24 16:16 Freq: Status: Active Protocol: Document 01/19/24 15:17 [facility] (Rec: 01/19/24 17:03 [facility] [id number]) Special Tests Knee Special Tests Patellar Grind Test Test Results + Valgus- 25 Degrees Test Results - Diana Test Test Results + Varus- 25 Degrees Test Results - PT-OP-M Strength Start: 01/18/24 16:16 Freq: Status: Active Protocol: Document 01/19/24 15:17 SAK (Rec: 01/19/24 17:03 SAK [id number]) Knee Strength Knee Manual Muscle Testing Left Flexion (S2) 3- Fair- Extension (L3) 3- Fair- Right Flexion (S2) 5 Normal Extension (L3) 5 Normal PT-OP-Q Treatments Start: 01/18/24 16:16 Freq: Status: Active Protocol: Document 02/14/24 11:34 SP (Rec: 02/14/24 12:28 SP [id number]) Therapeutic Exercises Supine Exercises HS isometric heel dig Side bilateral Equipment Used therapy ball 55 cm (chair at hotel) under heels Reps/Minutes 5 SH x10 Comments cued improve EV /c slight DF neutral pull back Sitting Exercises stretching Sitting Exercise Name piriformis and fig 4: self HEP review form Side left Reps/Minutes 30 each Comments cued gentle ROM suported by UEs, pnfree- good resp lessen L hip tight/ache Standing Exercises calf raises Standing Exercise Name verbal review self heel raises front step Side bilateral Resistance AROM Equipment Used rail support Reps/Minutes 10 reps Comments cued soft knee/unlocked, even BLE WB sidestepping Standing Exercise Name Reintroduce to HEP /c HO- soft TKE Equipment Used L1 TB at ankles Reps/Minutes 5ft x3 laps f/b &lateral Comments improved soft knee stability with cued awareness- pnfree tiring Knee ext Standing Exercise Name Reintroduce to HEP /c HO- TKE Resistance L2 TB behind distal thigh Reps/Minutes x10, 3 SH end feel Comments cued slow pnfree range quad engagement- good response Manual Therapy Treatment Consent Patient gave verbal consent for manual Yes treatment Soft Tissue Mobilization leg Body Location L RF, VMO Mobilization Type Myofascial Release,Rolling Body Position Hooklying Comments knee slight flexion Taping 1 Body Location L knee Treatment Focus Facilitate patellar positioning more medially Type of Tape Kinesio Tape Skin Inspection intact Comments L knee: 2 I strips superior<> inferior over inferior lat tib plateau and superior quad& mid patella. Self-Care/Home Management Treatment Education Patient Education Joint Protection,Pain Management,Safety Other Education Reviewed lymphatic drainage Circumference L knee: Mid patella- 37.8 cm ( inc .8 in) 5 cm above sup patella- 40.2 cm (inc 1.0 ) 5 cm below inf patella- 32.8 cm (same) *improved 1 cm mid patella and 5 cm below 2.5 cm reduction. L knee AROM: 138 deg light tension Med distal quad and Lateral superior tibia. .5 to 1 deg ext, improved still PT-OP-R Modalities Start: 01/18/24 16:16 Freq: Status: Active Protocol: Document 02/06/24 13:46 SAK (Rec: 02/06/24 15:48 SAK [id number]) Electric Stimulation Electric Stimulation Interferential Current (IFC) Body Location left knee Intensity 20 Target/Sweep Sweep Combined With Heat/Cold Cold Pack PT-OP-T Assessment and Plan Start: 01/18/24 16:16 Freq: Status: Active Protocol: Document 02/14/24 11:34 SP (Rec: 02/14/24 12:28 SP [id number]) Physical Therapy Assessment Goals 3 Impairment left LE weakness Short Term Goal (STG) Instruct in HEP for purposes of strengthening left LE STG Duration 02/24/24 Fan Blade Aligner Goal (LTG) Patient to be independent and compliant with HEP and demosntrate improvement in LE strength to at least 4+/5 2 Impairment lower extremity functional scale 47% Short Term Goal (STG) Improve score to at least 60% as measure of improved activitiy tolerance and left LE function STG Duration 02/24/24 Fan Blade Aligner Goal (LTG) Improve score to at least 75% as measure of improved activity tolerance and left LE function LTG Duration 03/26/24 1 Impairment left knee pain as high as 8/10 , antalgic gait, difficulty on stairs Short Term Goal (STG) Decrease pain by at least 50% STG Duration 02/24/24 [facility] Goal (LTG) Decrease pain by at least 75% with all usual activities and demonstrate ability to walk at normal speed without limp and alternate feet on stairs with ease LTG Duration 03/26/2524 Progress Towards Goals Progress Comments Improved L knee swelling reduction: improved 1 cm mid patella and 5 cm below 2.5 cm reduction. AROM .5-138 deg. Assessment Summary Assessment Pt improved swelling reduction in L knee remeasured today. Occasional cues for set up elevated HS lift for carryover hotel use chair and soft knee positioning for HS enagement support during progressed standing resisted TKE and band walk today (provided HOs) support L knee stability carryover walking on vacation next week. No pain reports throughout ther ex today. Trialed descend 2 book but intolerable LLE discussed continue step to til returns vacation and will progress later. REviewed Ktaping options for patella stability and swelling suspoprt. Pt pleased with progressed HEP today. Physical Therapy Plan Frequency and Duration Frequency of Treatment 2x/Week Duration of treatment (weeks) 12 Plan of Care Start Date 01/19/24 Plan of Care End Date 04/18/24 Therapeutic Interventions Therapeutic Interventions Home Exercise Program,Manual Therapy,Neuromuscular Re- education,Patient/Caregiver Education,Self-Care/Home Management,Soft Tissue Mobilization,Taping, Therapeutic Activities, Therapeutic Exercises Modalities Cold Pack/Ice Massage,Electric Stimulation,Hot Packs, Iontophoresis,Ultrasound Other Referrals/Consults Referrals/Consults Recommended Recommended to patient that further imaging seems indicated; she reports she called and left a message regarding the same on her way to PT. Next Visit Focus/Plan Next Note Type Treatment Note Next Visit Plan Start session with recumbant ex bike (preferred over upright). Remeasure L knee joint circumference (selfcare values). Recheck HEP Modalities and manual therapy PRN. Patellar mobilizations. Ktaping needed swelling & patellar positioning.
--- NOTE | 2024-02-17 09:51 | PT.OTN ---
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 At end of summer started doing some lunges and squats and had similar thing. Chiropracter did laser and taping and alternating ice and heat. This time has had 2 laser and tape treatments but hasn't gotten better yet. States thought she was being careful with alignment and technique. Now getting compensatory soreness. Can't straighten knee all the way. Tried a knee brace, not helpful Feels it is going to give out. Can't bend beyond 90 degrees, feels crackling. Prior Treatments and Tests x-ray: no report yet. PT-OP-C Subjective Start: 01/18/24 16:16 Freq: Status: Active Protocol: Document 02/17/24 09:07 SP (Rec: 02/17/24 09:50 SP [id number]) OP-PT Subjective Patient Comments Patient Comments Pt reports headed out of town later today, swelling improves but still little over anterolateral L knee, wants to utilize modalities and Ktaping support along with HEP think most crutial while out of town on [facility] . PT-OP-F Manual Assessment Start: 01/18/24 16:16 Freq: Status: Active Protocol: Document 01/19/24 15:17 [facility] (Rec: 01/19/24 17:03 [facility] [id number]) Manual Assessments Soft Tissue Assessment Soft Tissue Mobility Assessment palpable tightness lateral quad and IT band PT-OP-G Mobility & Gait Start: 01/18/24 16:16 Freq: Status: Active Protocol: Document 01/19/24 15:17 [facility] (Rec: 01/19/24 17:03 [facility] [id number]) OP Mobility Evaluation Transfers Sit to Stand painful, dec use left LE Functional Movements Lifting and Carrying unable Squats unable Running Assessment unable OP Gait Assessment Gait Gait Assistance Required: Independent Assistive Devices Assistive Device None Gait Deviations General Gait Pattern Antalgic Comments Gait Comments Patient instructed in use of cane and trekking pole, preferred pole. Instructed in correct fit and use Stair Climbing Evaluation Evaluation Level of Assist On Stairs Independent Devices Stair Climbing Assistive Devices Left Railing,Right Railing Technique/Endurance Stair Climbing Technique Step to Step Comments Stair Climbing Comments painful PT-OP-J Posture/Palpation/Skin Start: 01/18/24 16:16 Freq: Status: Active Protocol: Document 01/19/24 15:17 [facility] (Rec: 01/19/24 17:03 [facility] [id number]) Posture Evaluation Position Standing Patellar Posture (L) Laterally Tilted Palpation Assessment Location One Palpation Location left knee Palpation Findings Edema Palpation Details puffy and boggy texture of swelling. No redness or warmth. PT-OP-K Range of Motion Start: 01/18/24 16:16 Freq: Status: Active Protocol: Document 01/19/24 15:17 [facility] (Rec: 01/19/24 17:03 [facility] [id number]) Hip Goniometric Range of Motion Hip myra Hip ROM WFL Yes Knee Goniometric Range of Motion Knee Left Flexion Active (degrees) 90 Extension Active (degrees) 20 Right Flexion Active (degrees) 150 Extension Active (degrees) 0 Hyper-Extension Active 5 Knee ROM Limitations Knee ROM Limitations Pain,Swelling Ankle and Foot Goniometric Range of Motion Ankle and Foot myra Ankle/Foot ROM WFL Yes PT-OP-L Special Tests Start: 01/18/24 16:16 Freq: Status: Active Protocol: Document 01/19/24 15:17 [facility] (Rec: 01/19/24 17:03 SAK [id number]) Special Tests Knee Special Tests Patellar Grind Test Test Results + Valgus- 25 Degrees Test Results - Diana Test Test Results + Varus- 25 Degrees Test Results - PT-OP-M Strength Start: 01/18/24 16:16 Freq: Status: Active Protocol: Document 01/19/24 15:17 SAK (Rec: 01/19/24 17:03 SAK [id number]) Knee Strength Knee Manual Muscle Testing Left Flexion (S2) 3- Fair- Extension (L3) 3- Fair- Right Flexion (S2) 5 Normal Extension (L3) 5 Normal PT-OP-Q Treatments Start: 01/18/24 16:16 Freq: Status: Active Protocol: Document 02/17/24 09:07 SP (Rec: 02/17/24 09:50 SP [id number]) Therapeutic Exercises Sidelying Exercises hip ab Sidelying Exercise Name 02/17/24 Discussed continue performance OOT Side left Resistance aROM Reps/Minutes 10x5 Comments occ cues TKE Sitting Exercises LAQ Sitting Exercise Name AROM Side left Reps/Minutes 2 SH x10 Standing Exercises sidestepping Standing Exercise Name FWD, BWD, Lateral Equipment Used L1 TB at shins Reps/Minutes 10ft x2 laps f/b &lateral Comments improved soft knee stability with cued awareness- pnfree tiring Knee ext Standing Exercise Name Reintroduce to HEP /c HO- TKE Resistance L2 TB behind distal thigh Reps/Minutes x10, 3 SH end feel Comments cued slow pnfree range quad engagement- good response shallow squats Standing Exercise Name discussion continue when can OOT peformance Reps/Minutes 10x Comments mirror for visual feedback Manual Therapy Treatment Consent Patient gave verbal consent for manual Yes treatment Joint Mobilizations L knee Joint tibfib PA inflex, Tibiofemoral PA in flexion, pat mobility Grade II Body Position Hooklying Reps/Duration 2 Comments gentle small range mobility. Ed self application Taping 1 Body Location L knee Treatment Focus Facilitate patellar positioning more medially Type of Tape Kinesio Tape Skin Inspection intact Comments L knee: 3: 1 V lateral to medial patella stability, 1 fan middle Lateral long strip superior>inferior tib plateau and superior patella distal quad, 1 anterior tib plateau medial patella to distal Quad. PT-OP-R Modalities Start: 01/18/24 16:16 Freq: Status: Active Protocol: Document 02/17/24 09:07 SP (Rec: 02/17/24 09:50 SP [id number]) Electric Stimulation Electric Stimulation Interferential Current (IFC) Body Location left knee Intensity 17 Target/Sweep Sweep Combined With Heat/Cold Cold Pack Ultrasound Therapy Treatment L knee Patient Position Supine Applicator Size (cm2) 1 Intensity Setting (w/cm2) 0.8 Comments swelling reduction support PT-OP-T Assessment and Plan Start: 01/18/24 16:16 Freq: Status: Active Protocol: Document 02/17/24 09:07 SP (Rec: 02/17/24 09:50 SP [id number]) Physical Therapy Assessment Goals 3 Impairment left LE weakness Short Term Goal (STG) Instruct in HEP for purposes of strengthening left LE STG Duration 02/24/24 Detention Goal (LTG) Patient to be independent and compliant with HEP and demosntrate improvement in LE strength to at least 4+/5 2 Impairment lower extremity functional scale 47% Short Term Goal (STG) Improve score to at least 60% as measure of improved activitiy tolerance and left LE function STG Duration 02/24/24 Under Baster Goal (LTG) Improve score to at least 75% as measure of improved activity tolerance and left LE function LTG Duration 03/26/24 1 Impairment left knee pain as high as 8/10 , antalgic gait, difficulty on stairs Short Term Goal (STG) Decrease pain by at least 50% STG Duration 02/24/24 Detention Goal (LTG) Decrease pain by at least 75% with all usual activities and demonstrate ability to walk at normal speed without limp and alternate feet on stairs with ease LTG Duration 03/26/2524 Assessment Summary Assessment Pt responded well to manual, modality use for swelling support and Ktaping with ed how can support self when OOT. Pt felt more confidence with use CP/WP contrast ok more cold than warm and retaping if needed. Improved quad engagement during ther ex and knee positioning, continue keep moble. Pt stated might call physician and ask for MRI when returns OOT to see if there is anything wrong in knee and why slow progression strength and continued low swelling. Didn't get to bike today. Physical Therapy Plan Frequency and Duration Frequency of Treatment 2x/Week Duration of treatment (weeks) 12 Plan of Care Start Date 01/19/24 Plan of Care End Date 04/18/24 Therapeutic Interventions Therapeutic Interventions Home Exercise Program,Manual Therapy,Neuromuscular Re- education,Patient/Caregiver Education,Self-Care/Home Management,Soft Tissue Mobilization,Taping, Therapeutic Activities, Therapeutic Exercises Modalities Cold Pack/Ice Massage,Electric Stimulation,Hot Packs, Iontophoresis,Ultrasound Other Referrals/Consults Referrals/Consults Recommended Recommended to patient that further imaging seems indicated; she reports she called and left a message regarding the same on her way to PT. Next Visit Focus/Plan Next Note Type Treatment Note Next Visit Plan Start session with recumbant ex bike (preferred over upright). Remeasure L knee joint circumference (selfcare values) when return OOT. Recheck HEP, progress if tolerated. Modalities and manual therapy PRN. Patellar mobilizations. Ktaping needed swelling & patellar positioning.
--- NOTE | 2024-02-27 16:45 | PT.OTN ---
Current Diagnoses Other bursitis of knee, left knee (02/27/24) Difficulty in walking, not elsewhere classified (02/27/24) Weakness (02/27/24) Edema, unspecified (02/27/24) Physical Therapy Treatment Note PT-OP-A Visit Information Start: 01/18/24 16:16 Freq: Status: Active Protocol: Document 02/27/24 12:23 AB (Rec: 02/27/24 16:45 AB [id number]) Out-Patient Physical Therapy Visit Information Visit Information Visit Type Treatment Note Visit Start Time 14:34 Visit Stop Time 15:27 Visit Number [address] Visits 3 Evaluation Information Evaluation Date 01/15/24 Precautions Precautions osteoporosis, history br CA with myra mastectomies PT-OP-B Current Condition Start: 01/18/24 16:16 Freq: Status: Active Protocol: Document 01/26/24 14:38 SAK (Rec: 01/26/24 16:22 SAK [id number]) Current Condition History of Current Condition Onset Date 5 weeks Current Complaints L knee pain History of Current Condition sudden onset left knee pain, started with a little fluid filled bump below knee, then helped friend moving boxes, next day very puffy, couldn't move it. At end of summer started doing some lunges and squats and had similar thing. Chiropracter did laser and taping and alternating ice and heat. This time has had 2 laser and tape treatments but hasn't gotten better yet. States thought she was being careful with alignment and technique. Now getting compensatory soreness. Can't straighten knee all the way. Tried a knee brace, not helpful Feels it is going to give out. Can't bend beyond 90 degrees, feels crackling. Prior Treatments and Tests x-ray: no report yet. PT-OP-C Subjective Start: 01/18/24 16:16 Freq: Status: Active Protocol: Document 02/27/24 12:23 AB (Rec: 02/27/24 16:45 AB [id number]) OP-PT Subjective Patient Comments Patient Comments Angie reports the knee is better, walking fast and stairs continue to be painful. Patient reports she did a lot of walking, went slower did good. Patient reports maybe she would like more tape today . Circumference B knees at joint line L37.5 cm 36.75R cm PT-OP-F Manual Assessment Start: 01/18/24 16:16 Freq: Status: Active Protocol: Document 01/19/24 15:17 SAK (Rec: 01/19/24 17:03 [facility] [id number]) Manual Assessments Soft Tissue Assessment Soft Tissue Mobility Assessment palpable tightness lateral quad and IT band PT-OP-G Mobility & Gait Start: 01/18/24 16:16 Freq: Status: Active Protocol: Document 01/19/24 15:17 SAK (Rec: 01/19/24 17:03 [facility] [id number]) OP Mobility Evaluation Transfers Sit to Stand painful, dec use left LE Functional Movements Lifting and Carrying unable Squats unable Running Assessment unable OP Gait Assessment Gait Gait Assistance Required: Independent Assistive Devices Assistive Device None Gait Deviations General Gait Pattern Antalgic Comments Gait Comments Patient instructed in use of cane and trekking pole, preferred pole. Instructed in correct fit and use Stair Climbing Evaluation Evaluation Level of Assist On Stairs Independent Devices Stair Climbing Assistive Devices Left Railing,Right Railing Technique/Endurance Stair Climbing Technique Step to Step Comments Stair Climbing Comments painful PT-OP-J Posture/Palpation/Skin Start: 01/18/24 16:16 Freq: Status: Active Protocol: Document 01/19/24 15:17 [facility] (Rec: 01/19/24 17:03 [facility] [id number]) Posture Evaluation Position Standing Patellar Posture (L) Laterally Tilted Palpation Assessment Location One Palpation Location left knee Palpation Findings Edema Palpation Details puffy and boggy texture of swelling. No redness or warmth. PT-OP-K Range of Motion Start: 01/18/24 16:16 Freq: Status: Active Protocol: Document 01/19/24 15:17 [facility] (Rec: 01/19/24 17:03 [facility] [id number]) Hip Goniometric Range of Motion Hip myra Hip ROM WFL Yes Knee Goniometric Range of Motion Knee Left Flexion Active (degrees) 90 Extension Active (degrees) 20 Right Flexion Active (degrees) 150 Extension Active (degrees) 0 Hyper-Extension Active 5 Knee ROM Limitations Knee ROM Limitations Pain,Swelling Ankle and Foot Goniometric Range of Motion Ankle and Foot myra Ankle/Foot ROM WFL Yes PT-OP-L Special Tests Start: 01/18/24 16:16 Freq: Status: Active Protocol: Document 01/19/24 15:17 [facility] (Rec: 01/19/24 17:03 [facility] [id number]) Special Tests Knee Special Tests Patellar Grind Test Test Results + Valgus- 25 Degrees Test Results - Diana Test Test Results + Varus- 25 Degrees Test Results - PT-OP-M Strength Start: 01/18/24 16:16 Freq: Status: Active Protocol: Document 01/19/24 15:17 [facility] (Rec: 01/19/24 17:03 [facility] [id number]) Knee Strength Knee Manual Muscle Testing Left Flexion (S2) 3- Fair- Extension (L3) 3- Fair- Right Flexion (S2) 5 Normal Extension (L3) 5 Normal PT-OP-Q Treatments Start: 01/18/24 16:16 Freq: Status: Active Protocol: Document 02/27/24 12:23 AB (Rec: 02/27/24 16:45 AB [id number]) Cardio Equipment Recumbent Bicycle Duration (Minutes) 3 Resistance 2 Seat Position 5 Gym Equipment Shuttle Recovery Bilateral Squats Resistance 50, and 37 # X1 not kimberly 25 # X 6 kimberly Therapeutic Exercises Sitting Exercises seated hip abd with band Side bilateral Resistance level 3 [place] green band Reps/Minutes one min hold Standing Exercises step ups Standing Exercise Name 4 inch step with UE use Side bilateral Reps/Minutes X10 Comments monitored for pain, post tape sidestepping Standing Exercise Name lateral Equipment Used level 3 above knees Reps/Minutes 8 feet X 4 left and right Comments VC to avoid toeing out HC stretch Standing Exercise Name gastroc and soleus Equipment Used CONRAD Reps/Minutes 2x30 Comments post manual Manual Therapy Treatment Consent Patient gave verbal consent for manual Yes treatment Soft Tissue Mobilization lower leg Body Location L lateral gastroc, soleus, peroneal Mobilization Type Cross-Friction,Myofascial Release,Rolling,Sustained Pressure,Other Body Position Hooklying Taping 1 Body Location L knee Treatment Focus Facilitate patellar positioning more medially Type of Tape Kinesio Tape Skin Inspection intact Comments 1. I strip lateral to medial for patellar stability, 2 I strips to unload fat pat PT-OP-R Modalities Start: 01/18/24 16:16 Freq: Status: Active Protocol: Document 02/27/24 12:23 AB (Rec: 02/27/24 16:45 AB [id number]) Electric Stimulation Electric Stimulation Interferential Current (IFC) Body Location left knee Intensity 22 Target/Sweep Sweep Combined With Heat/Cold Cold Pack Comments 10 min PT-OP-T Assessment and Plan Start: 01/18/24 16:16 Freq: Status: Active Protocol: Document 02/27/24 12:23 AB (Rec: 02/27/24 16:45 AB [id number]) Physical Therapy Assessment Goals 3 Impairment left LE weakness Short Term Goal (STG) Instruct in HEP for purposes of strengthening left LE STG Duration 02/24/24 Circus Rider Goal (LTG) Patient to be independent and compliant with HEP and demosntrate improvement in LE strength to at least 4+/5 2 Impairment lower extremity functional scale 47% Short Term Goal (STG) Improve score to at least 60% as measure of improved activitiy tolerance and left LE function STG Duration 02/24/24 Circus Rider Goal (LTG) Improve score to at least 75% as measure of improved activity tolerance and left LE function LTG Duration 03/26/24 1 Impairment left knee pain as high as 8/10 , antalgic gait, difficulty on stairs Short Term Goal (STG) Decrease pain by at least 50% STG Duration 02/24/24 Group Home Goal (LTG) Decrease pain by at least 75% with all usual activities and demonstrate ability to walk at normal speed without limp and alternate feet on stairs with ease LTG Duration 03/26/2524 Assessment Summary Assessment Patient reports feels better performing step up left LE, more secure post taping. Physical Therapy Plan Frequency and Duration Frequency of Treatment 2x/Week Duration of treatment (weeks) 12 Plan of Care Start Date 01/19/24 Plan of Care End Date 04/18/24 Next Visit Focus/Plan Next Note Type Treatment Note Next Visit Plan Start session with recumbant ex bike (preferred over upright). Remeasure L knee joint circumference (selfcare values) when return OOT. Recheck HEP, progress if tolerated. Modalities and manual therapy PRN. Patellar mobilizations. Ktaping needed swelling & patellar positioning.
--- NOTE | 2024-03-01 16:33 | PT.OTN ---
Current Diagnoses Other bursitis of knee, left knee (03/01/24) Difficulty in walking, not elsewhere classified (03/01/24) Weakness (03/01/24) Edema, unspecified (03/01/24) Physical Therapy Treatment Note PT-OP-A Visit Information Start: 01/18/24 16:16 Freq: Status: Active Protocol: Document 03/01/24 10:46 SAK (Rec: 03/01/24 11:31 [facility] [id number]) Out-Patient Physical Therapy Visit Information Visit Information Visit Type Treatment Note Visit Start Time 10:46 Visit Stop Time 11:40 Visit Number 10 Number of TRANSMISSION ASSEMBLER Visits 0 Evaluation Information Evaluation Date 01/15/24 Precautions Precautions osteoporosis, history br CA with myra mastectomies PT-OP-B Current Condition Start: 01/18/24 16:16 Freq: Status: Active Protocol: Document 03/01/24 10:46 SAK (Rec: 03/01/24 11:31 [facility] [id number]) Current Condition History of Current Condition Onset Date 5 weeks Current Complaints L knee pain History of Current Condition sudden onset left knee pain, started with a little fluid filled bump below knee, then helped friend moving boxes, next day very puffy, couldn't move it. At end of summer started doing some lunges and squats and had similar thing. Chiropracter did laser and taping and alternating ice and heat. This time has had 2 laser and tape treatments but hasn't gotten better yet. States thought she was being careful with alignment and technique. Now getting compensatory soreness. Can't straighten knee all the way. Tried a knee brace, not helpful Feels it is going to give out. Can't bend beyond 90 degrees, feels crackling. Prior Treatments and Tests x-ray: no report yet. PT-OP-C Subjective Start: 01/18/24 16:16 Freq: Status: Active Protocol: Document 03/01/24 10:46 SAK (Rec: 03/01/24 11:31 [facility] [id number]) OP-PT Subjective Patient Comments Patient Comments Walking slowly is ok, knee clicking on stairs. Difficulty going up and down stairs; needs to go slow; clicking and sticking. MRI has been approved. Getting spasms right quads gets spasms occasionally when relaxed. L knee 39.5 cm PT-OP-F Manual Assessment Start: 01/18/24 16:16 Freq: Status: Active Protocol: Document 01/19/24 15:17 SAK (Rec: 01/19/24 17:03 [facility] [id number]) Manual Assessments Soft Tissue Assessment Soft Tissue Mobility Assessment palpable tightness lateral quad and IT band PT-OP-G Mobility & Gait Start: 01/18/24 16:16 Freq: Status: Active Protocol: Document 01/19/24 15:17 SAK (Rec: 01/19/24 17:03 [facility] [id number]) OP Mobility Evaluation Transfers Sit to Stand painful, dec use left LE Functional Movements Lifting and Carrying unable Squats unable Running Assessment unable OP Gait Assessment Gait Gait Assistance Required: Independent Assistive Devices Assistive Device None Gait Deviations General Gait Pattern Antalgic Comments Gait Comments Patient instructed in use of cane and trekking pole, preferred pole. Instructed in correct fit and use Stair Climbing Evaluation Evaluation Level of Assist On Stairs Independent Devices Stair Climbing Assistive Devices Left Railing,Right Railing Technique/Endurance Stair Climbing Technique Step to Step Comments Stair Climbing Comments painful PT-OP-J Posture/Palpation/Skin Start: 01/18/24 16:16 Freq: Status: Active Protocol: Document 01/19/24 15:17 SAK (Rec: 01/19/24 17:03 [facility] [id number]) Posture Evaluation Position Standing Patellar Posture (L) Laterally Tilted Palpation Assessment Location One Palpation Location left knee Palpation Findings Edema Palpation Details puffy and boggy texture of swelling. No redness or warmth. PT-OP-K Range of Motion Start: 01/18/24 16:16 Freq: Status: Active Protocol: Document 01/19/24 15:17 SAK (Rec: 01/19/24 17:03 [facility] [id number]) Hip Goniometric Range of Motion Hip myra Hip ROM WFL Yes Knee Goniometric Range of Motion Knee Left Flexion Active (degrees) 90 Extension Active (degrees) 20 Right Flexion Active (degrees) 150 Extension Active (degrees) 0 Hyper-Extension Active 5 Knee ROM Limitations Knee ROM Limitations Pain,Swelling Ankle and Foot Goniometric Range of Motion Ankle and Foot myra Ankle/Foot ROM WFL Yes PT-OP-L Special Tests Start: 01/18/24 16:16 Freq: Status: Active Protocol: Document 01/19/24 15:17 SAK (Rec: 01/19/24 17:03 [facility] [id number]) Special Tests Knee Special Tests Patellar Grind Test Test Results + Valgus- 25 Degrees Test Results - Diana Test Test Results + Varus- 25 Degrees Test Results - PT-OP-M Strength Start: 01/18/24 16:16 Freq: Status: Active Protocol: Document 01/19/24 15:17 SAK (Rec: 01/19/24 17:03 [facility] [id number]) Knee Strength Knee Manual Muscle Testing Left Flexion (S2) 3- Fair- Extension (L3) 3- Fair- Right Flexion (S2) 5 Normal Extension (L3) 5 Normal PT-OP-Q Treatments Start: 01/18/24 16:16 Freq: Status: Active Protocol: Document 03/01/24 10:46 [facility] (Rec: 03/01/24 11:31 [facility] [id number]) Manual Therapy Treatment Soft Tissue Mobilization lower leg Body Location L lateral gastroc, soleus, peroneal Mobilization Type Cross-Friction,Myofascial Release,Rolling,Sustained Pressure,Other Body Position Hooklying Taping 1 Body Location L knee Treatment Focus Facilitate patellar positioning more medially Type of Tape Kinesio Tape Skin Inspection intact Comments 1. I strip lateral to medial for patellar stability, 2 I strips to unload fat pat Self-Care/Home Management Treatment Education Patient Education Joint Protection,Pain Management,Safety PT-OP-R Modalities Start: 01/18/24 16:16 Freq: Status: Active Protocol: Document 03/01/24 10:46 [facility] (Rec: 03/01/24 11:31 [facility] [id number]) Electric Stimulation Electric Stimulation Interferential Current (IFC) Body Location left knee Intensity 22 Target/Sweep Sweep Combined With Heat/Cold Cold Pack Comments 10 min Ultrasound Therapy Treatment L knee Patient Position Supine Applicator Size (cm2) 1 Intensity Setting (w/cm2) 0.8 Comments swelling reduction support PT-OP-T Assessment and Plan Start: 01/18/24 16:16 Freq: Status: Active Protocol: Document 03/01/24 10:46 [facility] (Rec: 03/01/24 11:31 [facility] [id number]) Physical Therapy Assessment Goals 3 Impairment left LE weakness Short Term Goal (STG) Instruct in HEP for purposes of strengthening left LE 03/01/24: goal met, ongoing progression STG Duration goal met Mcc Goal (LTG) Patient to be independent and compliant with HEP and demosntrate improvement in LE strength to at least 4+/5 LTG Duration 03/26/24 2 Impairment lower extremity functional scale 47% Short Term Goal (STG) Improve score to at least 60% as measure of improved activitiy tolerance and left LE function 03/01/24: inc to 61%, goal met STG Duration 02/24/24 Manager Configuration Goal (LTG) Improve score to at least 75% as measure of improved activity tolerance and left LE function LTG Duration 03/26/24 1 Impairment left knee pain as high as 8/10 , antalgic gait, difficulty on stairs Short Term Goal (STG) Decrease pain by at least 50% 03/01/24: pain dec to 3/10, goal met. Gait slow, guarded. Still step-to pattern on stairs STG Duration goal met Manager Configuration Goal (LTG) Decrease pain by at least 75% with all usual activities and demonstrate ability to walk at normal speed without limp and alternate feet on stairs with ease LTG Duration 03/26/2524 Assessment Summary Assessment Patient reports good compliance to HEP, continued improvement, slow and careful because increased pain with moving fast. MRI approved, patient concerned about cost but will consider. Physical Therapy Plan Frequency and Duration Frequency of Treatment 2x/Week Duration of treatment (weeks) 12 Plan of Care Start Date 01/19/24 Plan of Care End Date 04/18/24 Therapeutic Interventions Therapeutic Interventions Home Exercise Program,Manual Therapy,Neuromuscular Re- education,Patient/Caregiver Education,Self-Care/Home Management,Soft Tissue Mobilization,Taping, Therapeutic Activities, Therapeutic Exercises Modalities Cold Pack/Ice Massage,Electric Stimulation,Hot Packs, Iontophoresis,Ultrasound Next Visit Focus/Plan Next Note Type Treatment Note Next Visit Plan Remeasure L knee joint circumference. Progress HEP as tolerated; trial shallow squats, contin shuttle leg press if squats not kimberly. Hamstring curls with TB or on Body Solid. Modalities and manual therapy PRN. Patellar mobilizations. Ktaping as needed swelling, patellar positioning, meniscal unloading
--- NOTE | 2024-03-06 17:03 | PT.OTN ---
Current Diagnoses Other bursitis of knee, left knee (03/06/24) Difficulty in walking, not elsewhere classified (03/06/24) Weakness (03/06/24) Edema, unspecified (03/06/24) Physical Therapy Treatment Note PT-OP-A Visit Information Start: 01/18/24 16:16 Freq: Status: Active Protocol: Document 03/06/24 09:05 [facility] (Rec: 03/06/24 09:49 [facility] [id number]) Out-Patient Physical Therapy Visit Information Visit Information Visit Type Treatment Note Visit Start Time 09:05 Visit Stop Time 09:55 Visit Number 11 Number of FIXED CAPITAL CLERK Visits 0 Evaluation Information Evaluation Date 01/15/24 Precautions Precautions osteoporosis, history br CA with myra mastectomies PT-OP-B Current Condition Start: 01/18/24 16:16 Freq: Status: Active Protocol: Document 03/06/24 09:05 [facility] (Rec: 03/06/24 09:49 [facility] [id number]) Current Condition History of Current Condition Onset Date 5 weeks Current Complaints L knee pain History of Current Condition sudden onset left knee pain, started with a little fluid filled bump below knee, then helped friend moving boxes, next day very puffy, couldn't move it. At end of summer started doing some lunges and squats and had similar thing. Chiropracter did laser and taping and alternating ice and heat. This time has had 2 laser and tape treatments but hasn't gotten better yet. States thought she was being careful with alignment and technique. Now getting compensatory soreness. Can't straighten knee all the way. Tried a knee brace, not helpful Feels it is going to give out. Can't bend beyond 90 degrees, feels crackling. Prior Treatments and Tests x-ray: no report yet. PT-OP-C Subjective Start: 01/18/24 16:16 Freq: Status: Active Protocol: Document 03/06/24 09:05 SAK (Rec: 03/06/24 09:49 [facility] [id number]) OP-PT Subjective Patient Comments Patient Comments Continues to improve, able to walk a little faster now. Has been able to do stairs but left knee still pops and has difficulty with control on way down, also did bleachers alternating feet again improved but lack of control. Doing HEP consistently though not bridge or single leg bridge. Insurance only approving 6 visits so next week will be last week of PT. Patient reports has to use hands getting off and on toilet due to height and lack of strength and control Patient Reported Progress Improving PT-OP-F Manual Assessment Start: 01/18/24 16:16 Freq: Status: Active Protocol: Document 01/19/24 15:17 SAK (Rec: 01/19/24 17:03 [facility] [id number]) Manual Assessments Soft Tissue Assessment Soft Tissue Mobility Assessment palpable tightness lateral quad and IT band PT-OP-G Mobility & Gait Start: 01/18/24 16:16 Freq: Status: Active Protocol: Document 01/19/24 15:17 SAK (Rec: 01/19/24 17:03 [facility] [id number]) OP Mobility Evaluation Transfers Sit to Stand painful, dec use left LE Functional Movements Lifting and Carrying unable Squats unable Running Assessment unable OP Gait Assessment Gait Gait Assistance Required: Independent Assistive Devices Assistive Device None Gait Deviations General Gait Pattern Antalgic Comments Gait Comments Patient instructed in use of cane and trekking pole, preferred pole. Instructed in correct fit and use Stair Climbing Evaluation Evaluation Level of Assist On Stairs Independent Devices Stair Climbing Assistive Devices Left Railing,Right Railing Technique/Endurance Stair Climbing Technique Step to Step Comments Stair Climbing Comments painful PT-OP-J Posture/Palpation/Skin Start: 01/18/24 16:16 Freq: Status: Active Protocol: Document 01/19/24 15:17 SAK (Rec: 01/19/24 17:03 [facility] [id number]) Posture Evaluation Position Standing Patellar Posture (L) Laterally Tilted Palpation Assessment Location One Palpation Location left knee Palpation Findings Edema Palpation Details puffy and boggy texture of swelling. No redness or warmth. PT-OP-K Range of Motion Start: 01/18/24 16:16 Freq: Status: Active Protocol: Document 01/19/24 15:17 SAK (Rec: 01/19/24 17:03 [facility] [id number]) Hip Goniometric Range of Motion Hip myra Hip ROM WFL Yes Knee Goniometric Range of Motion Knee Left Flexion Active (degrees) 90 Extension Active (degrees) 20 Right Flexion Active (degrees) 150 Extension Active (degrees) 0 Hyper-Extension Active 5 Knee ROM Limitations Knee ROM Limitations Pain,Swelling Ankle and Foot Goniometric Range of Motion Ankle and Foot myra Ankle/Foot ROM WFL Yes PT-OP-L Special Tests Start: 01/18/24 16:16 Freq: Status: Active Protocol: Document 01/19/24 15:17 [facility] (Rec: 01/19/24 17:03 [facility] [id number]) Special Tests Knee Special Tests Patellar Grind Test Test Results + Valgus- 25 Degrees Test Results - Diana Test Test Results + Varus- 25 Degrees Test Results - PT-OP-M Strength Start: 01/18/24 16:16 Freq: Status: Active Protocol: Document 01/19/24 15:17 [facility] (Rec: 01/19/24 17:03 [facility] [id number]) Knee Strength Knee Manual Muscle Testing Left Flexion (S2) 3- Fair- Extension (L3) 3- Fair- Right Flexion (S2) 5 Normal Extension (L3) 5 Normal PT-OP-Q Treatments Start: 01/18/24 16:16 Freq: Status: Active Protocol: Document 03/06/24 09:05 [facility] (Rec: 03/06/24 09:49 [facility] [id number]) Gym Equipment Shuttle Balance chains red Details f/b,side bal and weight shift Comments also staggered bal and wt shift Therapeutic Exercises Supine Exercises bridge Reps/Minutes 10x5 Sitting Exercises squats Reps/Minutes 10x Comments mini, cues for gluteal activation Standing Exercises step-ups, downs Equipment Used 4 box, mirror Comments cues for gluteal activation, slow and controlled single leg lift Reps/Minutes 5x step ups Equipment Used 4 box Reps/Minutes 10x2 calf raises Standing Exercise Name verbal review self heel raises front step Side bilateral Resistance AROM Equipment Used rail support Reps/Minutes 10 reps Comments cued soft knee/unlocked, even BLE WB sidestepping Standing Exercise Name lateral Equipment Used level 3 above knees Reps/Minutes 8 feet X 4 left and right Comments VC to avoid toeing out shallow squats Reps/Minutes 10x Comments mirror for visual feedback alignment Manual Therapy Treatment Taping 1 Comments Patient to tape at home; ran out of time PT session Self-Care/Home Management Treatment Education Patient Education Joint Protection,Pain Management,Safety Other Education gentle progression of activity level PT-OP-R Modalities Start: 01/18/24 16:16 Freq: Status: Active Protocol: Document 03/06/24 09:05 [facility] (Rec: 03/06/24 09:49 [facility] [id number]) Electric Stimulation Electric Stimulation Interferential Current (IFC) Body Location left knee Intensity 22 Target/Sweep Sweep Combined With Heat/Cold Cold Pack Comments 10 min Ultrasound Therapy Treatment L knee Patient Position Supine Applicator Size (cm2) 1 Intensity Setting (w/cm2) 0.8 Comments swelling reduction support PT-OP-T Assessment and Plan Start: 01/18/24 16:16 Freq: Status: Active Protocol: Document 03/01/24 10:46 [facility] (Rec: 03/01/24 11:31 [facility] [id number]) Physical Therapy Assessment Goals 3 Impairment left LE weakness Short Term Goal (STG) Instruct in HEP for purposes of strengthening left LE 03/01/24: goal met, ongoing progression STG Duration goal met Hand Buffing Wheel Former Goal (LTG) Patient to be independent and compliant with HEP and demosntrate improvement in LE strength to at least 4+/5 LTG Duration 03/26/24 2 Impairment lower extremity functional scale 47% Short Term Goal (STG) Improve score to at least 60% as measure of improved activitiy tolerance and left LE function 03/01/24: inc to 61%, goal met STG Duration 02/24/24 Hand Buffing Wheel Former Goal (LTG) Improve score to at least 75% as measure of improved activity tolerance and left LE function LTG Duration 03/26/24 1 Impairment left knee pain as high as 8/10 , antalgic gait, difficulty on stairs Short Term Goal (STG) Decrease pain by at least 50% 03/01/24: pain dec to 3/10, goal met. Gait slow, guarded. Still step-to pattern on stairs STG Duration goal met Hand Buffing Wheel Former Goal (LTG) Decrease pain by at least 75% with all usual activities and demonstrate ability to walk at normal speed without limp and alternate feet on stairs with ease LTG Duration 03/26/2524 Assessment Summary Assessment Patient reports good compliance to HEP, continued improvement, slow and careful because increased pain with moving fast. MRI approved, patient concerned about cost but will consider. Physical Therapy Plan Frequency and Duration Frequency of Treatment 2x/Week Duration of treatment (weeks) 12 Plan of Care Start Date 01/19/24 Plan of Care End Date 04/18/24 Therapeutic Interventions Therapeutic Interventions Home Exercise Program,Manual Therapy,Neuromuscular Re- education,Patient/Caregiver Education,Self-Care/Home Management,Soft Tissue Mobilization,Taping, Therapeutic Activities, Therapeutic Exercises Modalities Cold Pack/Ice Massage,Electric Stimulation,Hot Packs, Iontophoresis,Ultrasound Next Visit Focus/Plan Next Note Type Treatment Note Next Visit Plan Remeasure L knee joint circumference. Progress HEP as tolerated; trial shallow squats, contin shuttle leg press if squats not kimberly. Hamstring curls with TB or on Body Solid. Modalities and manual therapy PRN. Patellar mobilizations. Ktaping as needed swelling, patellar positioning, meniscal unloading
--- NOTE | 2024-03-14 16:56 | PT.OTN ---
Current Diagnoses Other bursitis of knee, left knee (03/14/24) Difficulty in walking, not elsewhere classified (03/14/24) Weakness (03/14/24) Edema, unspecified (03/14/24) Physical Therapy Treatment Note PT-OP-A Visit Information Start: 01/18/24 16:16 Freq: Status: Active Protocol: Document 03/14/24 10:42 [facility] (Rec: 03/14/24 11:31 [facility] [id number]) Out-Patient Physical Therapy Visit Information Visit Information Visit Type Treatment Note Visit Start Time 10:45 Visit Stop Time 11:40 Visit Number 12 Number of CUSTOMER SERVICE DRIVER Visits 0 Evaluation Information Evaluation Date 01/15/24 Precautions Precautions osteoporosis, history br CA with myra mastectomies PT-OP-B Current Condition Start: 01/18/24 16:16 Freq: Status: Active Protocol: Document 03/14/24 10:42 [facility] (Rec: 03/14/24 11:31 [facility] [id number]) Current Condition History of Current Condition Onset Date 5 weeks Current Complaints L knee pain History of Current Condition sudden onset left knee pain, started with a little fluid filled bump below knee, then helped friend moving boxes, next day very puffy, couldn't move it. At end of summer started doing some lunges and squats and had similar thing. Chiropracter did laser and taping and alternating ice and heat. This time has had 2 laser and tape treatments but hasn't gotten better yet. States thought she was being careful with alignment and technique. Now getting compensatory soreness. Can't straighten knee all the way. Tried a knee brace, not helpful Feels it is going to give out. Can't bend beyond 90 degrees, feels crackling. Prior Treatments and Tests x-ray: no report yet. PT-OP-C Subjective Start: 01/18/24 16:16 Freq: Status: Active Protocol: Document 03/14/24 10:42 [facility] (Rec: 03/14/24 11:31 [facility] [id number]) OP-PT Subjective Patient Comments Patient Comments Hung out with friends while they were working out; did PT HEP exercises and ab ex 2 days ago including single leg lifts added last session. Sore, a little more swollen, but overal sore in a good way. Didn't tape . Has been using exercise bike and walking. From when first started feels about 60% better, not able to squat, run, stairs with alternating pattern, or snowboard. PT-OP-F Manual Assessment Start: 01/18/24 16:16 Freq: Status: Active Protocol: Document 01/19/24 15:17 [facility] (Rec: 01/19/24 17:03 [facility] [id number]) Manual Assessments Soft Tissue Assessment Soft Tissue Mobility Assessment palpable tightness lateral quad and IT band PT-OP-G Mobility & Gait Start: 01/18/24 16:16 Freq: Status: Active Protocol: Document 01/19/24 15:17 [facility] (Rec: 01/19/24 17:03 [facility] [id number]) OP Mobility Evaluation Transfers Sit to Stand painful, dec use left LE Functional Movements Lifting and Carrying unable Squats unable Running Assessment unable OP Gait Assessment Gait Gait Assistance Required: Independent Assistive Devices Assistive Device None Gait Deviations General Gait Pattern Antalgic Comments Gait Comments Patient instructed in use of cane and trekking pole, preferred pole. Instructed in correct fit and use Stair Climbing Evaluation Evaluation Level of Assist On Stairs Independent Devices Stair Climbing Assistive Devices Left Railing,Right Railing Technique/Endurance Stair Climbing Technique Step to Step Comments Stair Climbing Comments painful PT-OP-J Posture/Palpation/Skin Start: 01/18/24 16:16 Freq: Status: Active Protocol: Document 01/19/24 15:17 [facility] (Rec: 01/19/24 17:03 [facility] [id number]) Posture Evaluation Position Standing Patellar Posture (L) Laterally Tilted Palpation Assessment Location One Palpation Location left knee Palpation Findings Edema Palpation Details puffy and boggy texture of swelling. No redness or warmth. PT-OP-K Range of Motion Start: 01/18/24 16:16 Freq: Status: Active Protocol: Document 01/19/24 15:17 [facility] (Rec: 01/19/24 17:03 [facility] [id number]) Hip Goniometric Range of Motion Hip myra Hip ROM WFL Yes Knee Goniometric Range of Motion Knee Left Flexion Active (degrees) 90 Extension Active (degrees) 20 Right Flexion Active (degrees) 150 Extension Active (degrees) 0 Hyper-Extension Active 5 Knee ROM Limitations Knee ROM Limitations Pain,Swelling Ankle and Foot Goniometric Range of Motion Ankle and Foot myar Ankle/Foot ROM WFL Yes PT-OP-L Special Tests Start: 01/18/24 16:16 Freq: Status: Active Protocol: Document 01/19/24 15:17 [facility] (Rec: 01/19/24 17:03 [facility] [id number]) Special Tests Knee Special Tests Patellar Grind Test Test Results + Valgus- 25 Degrees Test Results - Diana Test Test Results + Varus- 25 Degrees Test Results - PT-OP-M Strength Start: 01/18/24 16:16 Freq: Status: Active Protocol: Document 01/19/24 15:17 [facility] (Rec: 01/19/24 17:03 [facility] [id number]) Knee Strength Knee Manual Muscle Testing Left Flexion (S2) 3- Fair- Extension (L3) 3- Fair- Right Flexion (S2) 5 Normal Extension (L3) 5 Normal PT-OP-Q Treatments Start: 01/18/24 16:16 Freq: Status: Active Protocol: Document 03/14/24 10:42 [facility] (Rec: 03/14/24 11:31 [facility] [id number]) Gym Equipment Shuttle Balance chains red Details f/b,side bal EO/EC, and weight shift Comments also staggered bal and wt shift Therapeutic Exercises Sidelying Exercises clamshell Sidelying Exercise Name review form Sitting Exercises squats Equipment Used yellow ball between knees, mirror for visual feedback alignment Reps/Minutes 10x2 Comments mini, cues for gluteal activation Standing Exercises star slide Equipment Used mirror for visual feedback Reps/Minutes 10x2 myra step-ups, downs Standing Exercise Name fwd, side Equipment Used 4 box, mirror Reps/Minutes 10x ea myra Comments cues for LE alignmentgluteal activation, slow and controlled single leg lift Standing Exercise Name review Reps/Minutes 5x calf raises Standing Exercise Name HEP sidestepping Standing Exercise Name HEP Manual Therapy Treatment Joint Mobilizations L knee Joint tibfib PA inflex, Tibiofemoral PA in flexion, pat mobility Grade II Body Position Hooklying Reps/Duration 2 Comments gentle small range mobility. Ed self application Taping 1 Body Location left knee Treatment Focus facilitate patellar medial glide, support Type of Tape KT Skin Inspection intact Comments Y strip lateral to medial for patellar glide 75% stretch 2 Y strips from sup and inf to med and lat aspect patella 50 -75% stretch PT-OP-R Modalities Start: 01/18/24 16:16 Freq: Status: Active Protocol: Document 03/14/24 10:42 [facility] (Rec: 03/14/24 11:32 [facility] [id number]) Electric Stimulation Electric Stimulation Interferential Current (IFC) Body Location left knee Intensity 22 Target/Sweep Sweep Combined With Heat/Cold Cold Pack Comments 10 min PT-OP-T Assessment and Plan Start: 01/18/24 16:16 Freq: Status: Active Protocol: Document 03/14/24 10:42 [facility] (Rec: 03/14/24 11:31 [facility] [id number]) Physical Therapy Assessment Goals 3 Impairment left LE weakness Short Term Goal (STG) Instruct in HEP for purposes of strengthening left LE 03/01/24: goal met, ongoing progression STG Duration goal met Alf Goal (LTG) Patient to be independent and compliant with HEP and demosntrate improvement in LE strength to at least 4+/5 LTG Duration 03/26/24 2 Impairment lower extremity functional scale 47% Short Term Goal (STG) Improve score to at least 60% as measure of improved activitiy tolerance and left LE function 03/01/24: inc to 61%, goal met STG Duration 02/24/24 Cheese Production Supervisor Goal (LTG) Improve score to at least 75% as measure of improved activity tolerance and left LE function LTG Duration 03/26/24 1 Impairment left knee pain as high as 8/10 , antalgic gait, difficulty on stairs Short Term Goal (STG) Decrease pain by at least 50% 03/01/24: pain dec to 3/10, goal met. Gait slow, guarded. Still step-to pattern on stairs STG Duration goal met Cheese Production Supervisor Goal (LTG) Decrease pain by at least 75% with all usual activities and demonstrate ability to walk at normal speed without limp and alternate feet on stairs with ease LTG Duration 03/26/2524 Assessment Summary Assessment From when first started feels about 60% better, not able to squat, run, stairs with alternating pattern, or snowboard. Can't comfortably sit cross legged yet. Compliant to HEP. Improved squat with squeezing ball. Single leg left challenging requiring UE support. Physical Therapy Plan Frequency and Duration Frequency of Treatment 2x/Week Duration of treatment (weeks) 12 Plan of Care Start Date 01/19/24 Plan of Care End Date 04/18/24 Therapeutic Interventions Therapeutic Interventions Home Exercise Program,Manual Therapy,Neuromuscular Re- education,Patient/Caregiver Education,Self-Care/Home Management,Soft Tissue Mobilization,Taping, Therapeutic Activities, Therapeutic Exercises Modalities Cold Pack/Ice Massage,Electric Stimulation,Hot Packs, Iontophoresis,Ultrasound Next Visit Focus/Plan Next Note Type Treatment Note Next Visit Plan Remeasure L knee joint circumference. Progress HEP as tolerated;Hamstring curls with TB or on Body Solid. Modalities and manual therapy PRN. Patellar mobilizations. Ktaping as needed swelling, patellar positioning, meniscal unloading
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
--- NOTE | 2024-04-10 16:57 | PT.OPPOC ---
Physical, Occupational & Speech Therapy At [facility] Current Diagnoses Other bursitis of knee, left knee (04/10/24) Difficulty in walking, not elsewhere classified (04/10/24) Weakness (04/10/24) Edema, unspecified (04/10/24) Visit Care Team Role Provider Type TAMMY Santiago Family Provider Advanced Color Buffer Primary Care Provider Specialty: Medical Address: [address] [place] [address], [id number] Email: [email or web address] Shawanda Dennis MD Attending Provider Non-Staff Referring Provider Specialty: Oncology Address: [address] [place] [address], [id number] Email: Plan Of Care PT-OP-B Current Condition Start: 01/18/24 16:16 Freq: Status: Active Protocol: Document 04/10/24 11:31 [facility] (Rec: 04/10/24 12:28 [facility] [id number]) Current Condition History of Current Condition Onset Date 5 weeks Current Complaints L knee pain History of Current Condition sudden onset left knee pain, started with a little fluid filled bump below knee, then helped friend moving boxes, next day very puffy, couldn't move it. At end of summer started doing some lunges and squats and had similar thing. Chiropracter did laser and taping and alternating ice and heat. This time has had 2 laser and tape treatments but hasn't gotten better yet. States thought she was being careful with alignment and technique. Now getting compensatory soreness. Can't straighten knee all the way. Tried a knee brace, not helpful Feels it is going to give out. Can't bend beyond 90 degrees, feels crackling. Prior Treatments and Tests x-ray: no report yet. PT-OP-T Assessment and Plan Start: 01/18/24 16:16 Freq: Status: Active Protocol: Document 04/10/24 11:31 [facility] (Rec: 04/10/24 12:28 [facility] [id number]) Physical Therapy Assessment Goals 3 Impairment left LE weakness Short Term Goal (STG) Instruct in individualized, progressive HEP for purposes of strengthening left LE 03/01/24: goal met, ongoing progression STG Duration goal met Residential Goal (LTG) Patient to be independent and compliant with HEP and demosntrate improvement in LE strength to at least 4+/5 04/10/24: goal progress; 4/5 hip ext, ab, ER, knee ext and flex LTG Duration 06/08/24 2 Impairment lower extremity functional scale 47% Short Term Goal (STG) Improve score to at least 60% as measure of improved activitiy tolerance and left LE function 03/01/24: inc to 61%, goal met STG Duration goal met Commercial [employer] Goal (LTG) Improve score to at least 75% as measure of improved activity tolerance and left LE function 04/10/24: today patient scored only 38% reporting at beginning of session no further progress since last seen approx 1 month ago. Today we reviewed her HEP, worked on correcting technique and modifications to her HEP for best muscle activation and performance. LTG Duration 06/08/24 1 Impairment left knee pain as high as 8/10 , antalgic gait, difficulty on stairs Short Term Goal (STG) Decrease pain by at least 50% 03/01/24: pain dec to 3/10, goal met. Gait slow, guarded. Still step-to pattern on stairs STG Duration goal met Commercial [employer]one Pilot Goal (LTG) Decrease pain by at least 75% with all usual activities and demonstrate ability to walk at normal speed without limp and alternate feet on stairs with ease 04/10/24: reports pain 4-7/10, no further improvement since 1 month ago. LTG Duration 06/08/24 Assessment Summary Assessment No further progress since last seen, admits to realizing not doing full HEP. Reviewed HEP with mod cues for technique, muscle activation, and alignment, PT stressed importance of quality vs quantity ex. Added band to bridge and squat, modified technique to slower and smaller movement clam and hip abd, added hamstring curl with band and standing hip flex. Pt. review self KT taping. Patient may benefit from further imaging. She would benefit from further PT for further strengthening, to work on correct muscle activation and technique with all activities and exercises and help her return to prior level of function. She may benefit from further imaging given persistent symptoms. Physical Therapy Plan Frequency and Duration Frequency of Treatment 2x/Week Duration of treatment (weeks) 12 Plan of Care Start Date 04/10/24 Plan of Care End Date 06/08/24 Therapeutic Interventions Therapeutic Interventions Home Exercise Program,Manual Therapy,Neuromuscular Re- education,Patient/Caregiver Education,Self-Care/Home Management,Soft Tissue Mobilization,Taping, Therapeutic Activities, Therapeutic Exercises Modalities Cold Pack/Ice Massage,Electric Stimulation,Hot Packs, Iontophoresis,Ultrasound Next Visit Focus/Plan Next Note Type Treatment Note Next Visit Plan Review HEP modfied, added, or progressed last session. Continue progressive strengthing with emphasis on neutral LE alignment. Modalities, KT tape, manual therapy as indicated. Plan of Care Dates Plan of Care Start Date 04/10/24 Plan of Care End Date 06/08/24 Electronically Signed by: Emily Packer, PT 04/10/24 3336 If you are in agreement with this Plan of Care, please return a signed and dated copy. I have reviewed this Plan of Care and certify that the skilled therapy services above are required to meet the patient?s needs. Physician Signature Date Printed Name and Credentials Clinical Instructor Signature Printed Name and Credentials
--- NOTE | 2024-04-23 12:24 | PT.OTN ---
Current Diagnoses Other bursitis of knee, left knee (04/23/24) Difficulty in walking, not elsewhere classified (04/23/24) Weakness (04/23/24) Edema, unspecified (04/23/24) Physical Therapy Treatment Note PT-OP-A Visit Information Start: 01/18/24 16:16 Freq: Status: Active Protocol: Document 04/23/24 11:25 [facility] (Rec: 04/23/24 12:24 [facility] [id number]) Out-Patient Physical Therapy Visit Information Visit Information Visit Type Treatment Note Visit Start Time 11:31 Visit Stop Time 12:30 Visit Number 14 Number of PONY ROUGHER Visits 0 Evaluation Information Evaluation Date 01/15/24 Precautions Precautions osteoporosis, history br CA with myra mastectomies PT-OP-B Current Condition Start: 01/18/24 16:16 Freq: Status: Active Protocol: Document 04/23/24 11:25 [facility] (Rec: 04/23/24 12:24 [facility] [id number]) Current Condition History of Current Condition Onset Date 5 weeks Current Complaints L knee pain History of Current Condition sudden onset left knee pain, started with a little fluid filled bump below knee, then helped friend moving boxes, next day very puffy, couldn't move it. At end of summer started doing some lunges and squats and had similar thing. Chiropracter did laser and taping and alternating ice and heat. This time has had 2 laser and tape treatments but hasn't gotten better yet. States thought she was being careful with alignment and technique. Now getting compensatory soreness. Can't straighten knee all the way. Tried a knee brace, not helpful Feels it is going to give out. Can't bend beyond 90 degrees, feels crackling. Prior Treatments and Tests x-ray: no report yet. PT-OP-C Subjective Start: 01/18/24 16:16 Freq: Status: Active Protocol: Document 04/23/24 11:25 [facility] (Rec: 04/23/24 12:24 [facility] [id number]) OP-PT Subjective Patient Comments Patient Comments Needs to get new referral for MRI. Much improved after accupuncture, better on stairs , still some swelling but was able to tolerate standing for work over weekend. Didn't retape. Did short distance biking with kids with good tolerance. Not able to do child's pose or sit cross legged still, or do Miguel squat. PT-OP-F Manual Assessment Start: 01/18/24 16:16 Freq: Status: Active Protocol: Document 01/19/24 15:17 [facility] (Rec: 01/19/24 17:03 [facility] [id number]) Manual Assessments Soft Tissue Assessment Soft Tissue Mobility Assessment palpable tightness lateral quad and IT band PT-OP-G Mobility & Gait Start: 01/18/24 16:16 Freq: Status: Active Protocol: Document 01/19/24 15:17 [facility] (Rec: 01/19/24 17:03 [facility] [id number]) OP Mobility Evaluation Transfers Sit to Stand painful, dec use left LE Functional Movements Lifting and Carrying unable Squats unable Running Assessment unable OP Gait Assessment Gait Gait Assistance Required: Independent Assistive Devices Assistive Device None Gait Deviations General Gait Pattern Antalgic Comments Gait Comments Patient instructed in use of cane and trekking pole, preferred pole. Instructed in correct fit and use Stair Climbing Evaluation Evaluation Level of Assist On Stairs Independent Devices Stair Climbing Assistive Devices Left Railing,Right Railing Technique/Endurance Stair Climbing Technique Step to Step Comments Stair Climbing Comments painful PT-OP-J Posture/Palpation/Skin Start: 01/18/24 16:16 Freq: Status: Active Protocol: Document 01/19/24 15:17 [facility] (Rec: 01/19/24 17:03 [facility] [id number]) Posture Evaluation Position Standing Patellar Posture (L) Laterally Tilted Palpation Assessment Location One Palpation Location left knee Palpation Findings Edema Palpation Details puffy and boggy texture of swelling. No redness or warmth. PT-OP-K Range of Motion Start: 01/18/24 16:16 Freq: Status: Active Protocol: Document 01/19/24 15:17 [facility] (Rec: 01/19/24 17:03 [facility] [id number]) Hip Goniometric Range of Motion Hip myra Hip ROM WFL Yes Knee Goniometric Range of Motion Knee Left Flexion Active (degrees) 90 Extension Active (degrees) 20 Right Flexion Active (degrees) 150 Extension Active (degrees) 0 Hyper-Extension Active 5 Knee ROM Limitations Knee ROM Limitations Pain,Swelling Ankle and Foot Goniometric Range of Motion Ankle and Foot myra Ankle/Foot ROM WFL Yes PT-OP-L Special Tests Start: 01/18/24 16:16 Freq: Status: Active Protocol: Document 01/19/24 15:17 [facility] (Rec: 01/19/24 17:03 [facility] [id number]) Special Tests Knee Special Tests Patellar Grind Test Test Results + Valgus- 25 Degrees Test Results - Diana Test Test Results + Varus- 25 Degrees Test Results - PT-OP-M Strength Start: 01/18/24 16:16 Freq: Status: Active Protocol: Document 01/19/24 15:17 [facility] (Rec: 01/19/24 17:03 [facility] [id number]) Knee Strength Knee Manual Muscle Testing Left Flexion (S2) 3- Fair- Extension (L3) 3- Fair- Right Flexion (S2) 5 Normal Extension (L3) 5 Normal PT-OP-Q Treatments Start: 01/18/24 16:16 Freq: Status: Active Protocol: Document 04/23/24 11:25 [facility] (Rec: 04/23/24 12:24 [facility] [id number]) Cardio Equipment Bicycle (Upright) Duration (Minutes) 5 Resistance 2 Seat Position 5 Gym Equipment Shuttle Recovery Unilateral Squats Resistance 37 Reps/Time 10x ea, cues for knees tracking toward feet Bilateral Squats Resistance 50# Reps/Time 10x2, cues for knees tracking toward feet Therapeutic Exercises Sidelying Exercises clamshell Equipment Used wall Reps/Minutes 10x Comments cues for core activation, smaller movement, no rolling back hip ab Equipment Used wall Reps/Minutes 10x Comments cues for core activation, smaller movement, legs stay parallel Sitting Exercises stool scoot Reps/Minutes 15 ft x 2 squats Sitting Exercise Name squat Equipment Used L3 band around knees and mirror for visual feedback alignment Reps/Minutes 10x2 Comments mini, cues for gluteal activation Standing Exercises short foot Reps/Minutes 5x lunges Equipment Used mirror Reps/Minutes 10 Comments mini, emphasis on alignment. step-ups, downs Standing Exercise Name fwd, side Equipment Used 4 box, mirror Reps/Minutes 10x ea myra Comments cues for LE alignmentgluteal activation, slow and controlled step ups Equipment Used 4 box Reps/Minutes 10x2 Other Exercises Modified Miguel squat Reps/Minutes 2x Comments stool 15 high, 12 high with UE support modified child's pose Reps/Minutes 1 min Comments pillows under bottom to dec knee flexion Manual Therapy Treatment Taping 1 Comments no tape due to going to accupuncture later today PT-OP-R Modalities Start: 01/18/24 16:16 Freq: Status: Active Protocol: Document 04/23/24 11:25 [facility] (Rec: 04/23/24 12:24 [facility] [id number]) Electric Stimulation Electric Stimulation Interferential Current (IFC) Body Location left knee Intensity 18 Target/Sweep Sweep Combined With Heat/Cold Cold Pack Comments 10 min PT-OP-T Assessment and Plan Start: 01/18/24 16:16 Freq: Status: Active Protocol: Document 04/23/24 11:25 [facility] (Rec: 04/23/24 12:24 [facility] [id number]) Physical Therapy Assessment Goals 3 Impairment left LE weakness Short Term Goal (STG) Instruct in individualized, progressive HEP for purposes of strengthening left LE 03/01/24: goal met, ongoing progression STG Duration goal met [employer] Goal (LTG) Patient to be independent and compliant with HEP and demosntrate improvement in LE strength to at least 4+/5 04/10/24: goal progress; 4/5 hip ext, ab, ER, knee ext and flex LTG Duration 06/08/24 2 Impairment lower extremity functional scale 47% Short Term Goal (STG) Improve score to at least 60% as measure of improved activitiy tolerance and left LE function 03/01/24: inc to 61%, goal met STG Duration goal met [employer] Inspector Goal (LTG) Improve score to at least 75% as measure of improved activity tolerance and left LE function 04/10/24: today patient scored only 38% reporting at beginning of session no further progress since last seen approx 1 month ago. Today we reviewed her HEP, worked on correcting technique and modifications to her HEP for best muscle activation and performance. LTG Duration 06/08/24 1 Impairment left knee pain as high as 8/10 , antalgic gait, difficulty on stairs Short Term Goal (STG) Decrease pain by at least 50% 03/01/24: pain dec to 3/10, goal met. Gait slow, guarded. Still step-to pattern on stairs STG Duration goal met Intermediate Goal (LTG) Decrease pain by at least 75% with all usual activities and demonstrate ability to walk at normal speed without limp and alternate feet on stairs with ease 04/10/24: reports pain 4-7/10, no further improvement since 1 month ago. LTG Duration 06/08/24 Assessment Summary Assessment Improved form on exercises, further cues for tracking of knee toward foot, also importance of neutral foot, wear her Superfeet, also short foot exercise, no tapered toes on shoes. Patient demonstrated good ujderstanding. Also instructed modifications of yoga poses for tolerance. Physical Therapy Plan Frequency and Duration Frequency of Treatment 2x/Week Duration of treatment (weeks) 12 Plan of Care Start Date 04/10/24 Plan of Care End Date 06/08/24 Therapeutic Interventions Therapeutic Interventions Home Exercise Program,Manual Therapy,Neuromuscular Re- education,Patient/Caregiver Education,Self-Care/Home Management,Soft Tissue Mobilization,Taping, Therapeutic Activities, Therapeutic Exercises Modalities Cold Pack/Ice Massage,Electric Stimulation,Hot Packs, Iontophoresis,Ultrasound Next Visit Focus/Plan Next Note Type Treatment Note Next Visit Plan Assess response to today's treatment, try 6 box for stepups/downs, increase weight on shuttle leg press as kimberly. Modalities, KT tape, manual therapy PRN.
--- NOTE | 2024-05-01 10:43 | PT.OTN ---
Current Diagnoses Other bursitis of knee, left knee (05/01/24) Difficulty in walking, not elsewhere classified (05/01/24) Weakness (05/01/24) Edema, unspecified (05/01/24) Physical Therapy Treatment Note PT-OP-A Visit Information Start: 01/18/24 16:16 Freq: Status: Active Protocol: Document 05/01/24 09:46 [facility] (Rec: 05/01/24 10:43 [facility] [id number]) Out-Patient Physical Therapy Visit Information Visit Information Visit Type Treatment Note Visit Start Time 09:46 Visit Stop Time 10:44 Visit Number 15 Number of TRANSPORTATION ENGINEER Visits 0 Evaluation Information Evaluation Date 01/15/24 Precautions Precautions osteoporosis, history br CA with myra mastectomies PT-OP-B Current Condition Start: 01/18/24 16:16 Freq: Status: Active Protocol: Document 05/01/24 09:46 [facility] (Rec: 05/01/24 10:43 [facility] [id number]) Current Condition History of Current Condition Onset Date 5 weeks Current Complaints L knee pain History of Current Condition sudden onset left knee pain, started with a little fluid filled bump below knee, then helped friend moving boxes, next day very puffy, couldn't move it. At end of summer started doing some lunges and squats and had similar thing. Chiropracter did laser and taping and alternating ice and heat. This time has had 2 laser and tape treatments but hasn't gotten better yet. States thought she was being careful with alignment and technique. Now getting compensatory soreness. Can't straighten knee all the way. Tried a knee brace, not helpful Feels it is going to give out. Can't bend beyond 90 degrees, feels crackling. Prior Treatments and Tests x-ray: no report yet. PT-OP-C Subjective Start: 01/18/24 16:16 Freq: Status: Active Protocol: Document 05/01/24 09:46 [facility] (Rec: 05/01/24 10:43 [facility] [id number]) OP-PT Subjective Patient Comments Patient Comments Pain ranging 1-4/10, has been working more. Worst day was working all day, doing a lot of standing. Has been able to go up/down stairs more. Improved HEP compliance, reports muscle soreness. Still cant do full squat due to pain. Hasn't heard about MRI. Has next accupuncture appointment tomorrow. PT-OP-F Manual Assessment Start: 01/18/24 16:16 Freq: Status: Active Protocol: Document 01/19/24 15:17 [facility] (Rec: 01/19/24 17:03 [facility] [id number]) Manual Assessments Soft Tissue Assessment Soft Tissue Mobility Assessment palpable tightness lateral quad and IT band PT-OP-G Mobility & Gait Start: 01/18/24 16:16 Freq: Status: Active Protocol: Document 01/19/24 15:17 [facility] (Rec: 01/19/24 17:03 [facility] [id number]) OP Mobility Evaluation Transfers Sit to Stand painful, dec use left LE Functional Movements Lifting and Carrying unable Squats unable Running Assessment unable OP Gait Assessment Gait Gait Assistance Required: Independent Assistive Devices Assistive Device None Gait Deviations General Gait Pattern Antalgic Comments Gait Comments Patient instructed in use of cane and trekking pole, preferred pole. Instructed in correct fit and use Stair Climbing Evaluation Evaluation Level of Assist On Stairs Independent Devices Stair Climbing Assistive Devices Left Railing,Right Railing Technique/Endurance Stair Climbing Technique Step to Step Comments Stair Climbing Comments painful PT-OP-J Posture/Palpation/Skin Start: 01/18/24 16:16 Freq: Status: Active Protocol: Document 01/19/24 15:17 [facility] (Rec: 01/19/24 17:03 [facility] [id number]) Posture Evaluation Position Standing Patellar Posture (L) Laterally Tilted Palpation Assessment Location One Palpation Location left knee Palpation Findings Edema Palpation Details puffy and boggy texture of swelling. No redness or warmth. PT-OP-K Range of Motion Start: 01/18/24 16:16 Freq: Status: Active Protocol: Document 01/19/24 15:17 [facility] (Rec: 01/19/24 17:03 [facility] [id number]) Hip Goniometric Range of Motion Hip myra Hip ROM WFL Yes Knee Goniometric Range of Motion Knee Left Flexion Active (degrees) 90 Extension Active (degrees) 20 Right Flexion Active (degrees) 150 Extension Active (degrees) 0 Hyper-Extension Active 5 Knee ROM Limitations Knee ROM Limitations Pain,Swelling Ankle and Foot Goniometric Range of Motion Ankle and Foot myra Ankle/Foot ROM WFL Yes PT-OP-L Special Tests Start: 12/04/24 16:16 Freq: Status: Active Protocol: Document 01/19/24 15:17 [facility] (Rec: 01/19/24 17:03 [facility] [id number]) Special Tests Knee Special Tests Patellar Grind Test Test Results + Valgus- 25 Degrees Test Results - Diana Test Test Results + Varus- 25 Degrees Test Results - PT-OP-M Strength Start: 01/18/24 16:16 Freq: Status: Active Protocol: Document 01/19/24 15:17 [facility] (Rec: 01/19/24 17:03 [facility] [id number]) Knee Strength Knee Manual Muscle Testing Left Flexion (S2) 3- Fair- Extension (L3) 3- Fair- Right Flexion (S2) 5 Normal Extension (L3) 5 Normal PT-OP-Q Treatments Start: 01/18/24 16:16 Freq: Status: Active Protocol: Document 05/01/24 09:46 [facility] (Rec: 05/01/24 10:43 [facility] [id number]) Cardio Equipment Bicycle (Upright) Duration (Minutes) 8 Resistance 10 Seat Position 5 Other cues for circular motion Gym Equipment Cable Column (Body Solid) hamstring curl Details myra and unil Resistance 40x20 Reps/Time 10x2 Shuttle Recovery Unilateral Squats Resistance 37 Reps/Time 10x2 ea, cues for knees tracking toward feet Bilateral Squats Resistance 62# Reps/Time 10x2, cues for knees tracking toward feet Therapeutic Exercises Supine Exercises SAQ Supine Exercise Name reviewed Side left Resistance 4# Equipment Used Knee over foam roller Reps/Minutes 10x5 Comments denied pain bridge Supine Exercise Name unil Reps/Minutes 10x5 Sitting Exercises squats Sitting Exercise Name squat Equipment Used 12 high box, mirror Reps/Minutes 10x2 Comments cues for gluteal activation, LE alignment Standing Exercises eccentric heel and toe raises Reps/Minutes 10x lunges Comments repeat next session resisted hip Standing Exercise Name verbal review, remember HS curl single leg lift Reps/Minutes 10x Manual Therapy Treatment Taping 1 Comments no tape due to going to accupuncture later today PT-OP-R Modalities Start: 01/18/24 16:16 Freq: Status: Active Protocol: Document 05/01/24 09:46 [facility] (Rec: 05/01/24 10:43 [facility] [id number]) Electric Stimulation Electric Stimulation Interferential Current (IFC) Body Location left knee Intensity 18 Target/Sweep Sweep Combined With Heat/Cold Cold Pack Comments 10 min PT-OP-T Assessment and Plan Start: 01/18/24 16:16 Freq: Status: Active Protocol: Document 05/01/24 09:46 [facility] (Rec: 05/01/24 10:43 [facility] [id number]) Physical Therapy Assessment Goals 3 Impairment left LE weakness Short Term Goal (STG) Instruct in individualized, progressive HEP for purposes of strengthening left LE 03/01/24: goal met, ongoing progression STG Duration goal met [place] Hand Goal (LTG) Patient to be independent and compliant with HEP and demosntrate improvement in LE strength to at least 4+/5 04/10/24: goal progress; 4/5 hip ext, ab, ER, knee ext and flex 05/01/24:continued progress: hip ext 4/5, ab 4+/5, ER 4+/5, knee ext and flex 4+/5 LTG Duration 06/08/24 2 Impairment lower extremity functional scale 47% Short Term Goal (STG) Improve score to at least 60% as measure of improved activitiy tolerance and left LE function 03/01/24: inc to 61%, goal met STG Duration goal met Halfway Goal (LTG) Improve score to at least 75% as measure of improved activity tolerance and left LE function 04/10/24: today patient scored only 38% reporting at beginning of session no further progress since last seen approx 1 month ago. Today we reviewed her HEP, worked on correcting technique and modifications to her HEP for best muscle activation and performance. 05/01/24: score 52% LTG Duration 06/08/24 1 Impairment left knee pain as high as 8/10 , antalgic gait, difficulty on stairs Short Term Goal (STG) Decrease pain by at least 50% 03/01/24: pain dec to 3/10, goal met. Gait slow, guarded. Still step-to pattern on stairs STG Duration goal met [place] Hand Goal (LTG) Decrease pain by at least 75% with all usual activities and demonstrate ability to walk at normal speed without limp and alternate feet on stairs with ease 04/10/24: reports pain 4-7/10, no further improvement since 1 month ago. 05/01/24: pain decreased to 1-4 , walks without limp, cannot run LTG Duration 06/08/24 Assessment Summary Assessment Continued goal progress with pain dec 1-05/24, walking without limp, stairs without increase in pain. Difficulty withprolonged standing, running, lunging, lifting. Progressed ex to no UE support with single leg lift, single leg bridge only, lower surface for squat/sit to stand , aded eccentric heel and toe raises cued unlocked knee. Physical Therapy Plan Frequency and Duration Frequency of Treatment 2x/Week Duration of treatment (weeks) 12 Plan of Care Start Date 04/10/24 Plan of Care End Date 06/08/24 Therapeutic Interventions Therapeutic Interventions Home Exercise Program,Manual Therapy,Neuromuscular Re- education,Patient/Caregiver Education,Self-Care/Home Management,Soft Tissue Mobilization,Taping, Therapeutic Activities, Therapeutic Exercises Modalities Cold Pack/Ice Massage,Electric Stimulation,Hot Packs, Iontophoresis,Ultrasound Next Visit Focus/Plan Next Visit Plan Review lunges, do star slide. Lower surface for squats as tolerated, single leg lift no UE's with weight.
--- NOTE | 2024-05-15 11:47 | PT.OTN ---
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 At end of summer started doing some lunges and squats and had similar thing. Chiropracter did laser and taping and alternating ice and heat. This time has had 2 laser and tape treatments but hasn't gotten better yet. States thought she was being careful with alignment and technique. Now getting compensatory soreness. Can't straighten knee all the way. Tried a knee brace, not helpful Feels it is going to give out. Can't bend beyond 90 degrees, feels crackling. Prior Treatments and Tests x-ray: no report yet. PT-OP-C Subjective Start: 01/18/24 16:16 Freq: Status: Active Protocol: Document 05/15/24 10:34 SAK (Rec: 05/15/24 11:30 [facility] [id number]) OP-PT Subjective Patient Comments Patient Comments Muscle soreness after workout with friend yesterday including bridging and slow squats, found herself feeling weaker toward the end, had to back off, not painful. Put knee brace on after and iced after . Stairs ok this week. PT-OP-F Manual Assessment Start: 01/18/24 16:16 Freq: Status: Active Protocol: Document 01/19/24 15:17 [facility] (Rec: 01/19/24 17:03 [facility] [id number]) Manual Assessments Soft Tissue Assessment Soft Tissue Mobility Assessment palpable tightness lateral quad and IT band PT-OP-G Mobility & Gait Start: 01/18/24 16:16 Freq: Status: Active Protocol: Document 01/19/24 15:17 [facility] (Rec: 01/19/24 17:03 [facility] [id number]) OP Mobility Evaluation Transfers Sit to Stand painful, dec use left LE Functional Movements Lifting and Carrying unable Squats unable Running Assessment unable OP Gait Assessment Gait Gait Assistance Required: Independent Assistive Devices Assistive Device None Gait Deviations General Gait Pattern Antalgic Comments Gait Comments Patient instructed in use of cane and trekking pole, preferred pole. Instructed in correct fit and use Stair Climbing Evaluation Evaluation Level of Assist On Stairs Independent Devices Stair Climbing Assistive Devices Left Railing,Right Railing Technique/Endurance Stair Climbing Technique Step to Step Comments Stair Climbing Comments painful PT-OP-J Posture/Palpation/Skin Start: 01/18/24 16:16 Freq: Status: Active Protocol: Document 01/19/24 15:17 [facility] (Rec: 01/19/24 17:03 [facility] [id number]) Posture Evaluation Position Standing Patellar Posture (L) Laterally Tilted Palpation Assessment Location One Palpation Location left knee Palpation Findings Edema Palpation Details puffy and boggy texture of swelling. No redness or warmth. PT-OP-K Range of Motion Start: 01/18/24 16:16 Freq: Status: Active Protocol: Document 01/19/24 15:17 [facility] (Rec: 01/19/24 17:03 [facility] [id number]) Hip Goniometric Range of Motion Hip myra Hip ROM WFL Yes Knee Goniometric Range of Motion Knee Left Flexion Active (degrees) 90 Extension Active (degrees) 20 Right Flexion Active (degrees) 150 Extension Active (degrees) 0 Hyper-Extension Active 5 Knee ROM Limitations Knee ROM Limitations Pain,Swelling Ankle and Foot Goniometric Range of Motion Ankle and Foot myra Ankle/Foot ROM WFL Yes PT-OP-L Special Tests Start: 01/18/24 16:16 Freq: Status: Active Protocol: Document 01/19/24 15:17 [facility] (Rec: 01/19/24 17:03 [facility] [id number]) Special Tests Knee Special Tests Patellar Grind Test Test Results + Valgus- 25 Degrees Test Results - Diana Test Test Results + Varus- 25 Degrees Test Results - PT-OP-M Strength Start: 01/18/24 16:16 Freq: Status: Active Protocol: Document 01/19/24 15:17 [facility] (Rec: 01/19/24 17:03 [facility] [id number]) Knee Strength Knee Manual Muscle Testing Left Flexion (S2) 3- Fair- Extension (L3) 3- Fair- Right Flexion (S2) 5 Normal Extension (L3) 5 Normal PT-OP-Q Treatments Start: 01/18/24 16:16 Freq: Status: Active Protocol: Document 05/15/24 10:34 [facility] (Rec: 05/15/24 11:30 [facility] [id number]) Cardio Equipment Bicycle (Upright) Duration (Minutes) 9 Resistance 10 Seat Position 5 Other cues for circular motion Gym Equipment Cable Column (Body Solid) hamstring curl Details myra and unil Resistance 40x20 Reps/Time 10x2 Shuttle Recovery Unilateral Squats Resistance 37 Reps/Time 10x2 ea, cues for knees tracking toward feet Therapeutic Exercises Standing Exercises star slide Standing Exercise Name added to HEP Equipment Used mirror for visual feedback Reps/Minutes clocks x 5 Comments not as far with WB left single leg lift Reps/Minutes 10x Comments no UE support, more difficult weight-bearing left PT-OP-R Modalities Start: 01/18/24 16:16 Freq: Status: Active Protocol: Document 05/15/24 10:34 [facility] (Rec: 05/15/24 11:30 [facility] [id number]) Electric Stimulation Electric Stimulation Interferential Current (IFC) Body Location left knee Intensity 18 Target/Sweep Sweep Combined With Heat/Cold Cold Pack Comments 10 min PT-OP-T Assessment and Plan Start: 01/18/24 16:16 Freq: Status: Active Protocol: Document 05/15/24 10:34 [facility] (Rec: 05/15/24 11:30 [facility] [id number]) Physical Therapy Assessment Goals 3 Impairment left LE weakness Short Term Goal (STG) Instruct in individualized, progressive HEP for purposes of strengthening left LE 03/01/24: goal met, ongoing progression STG Duration goal met Shelter Goal (LTG) Patient to be independent and compliant with HEP and demosntrate improvement in LE strength to at least 4+/5 2/25/25: goal progress; 4/5 hip ext, ab, ER, knee ext and flex 05/01/24:continued progress: hip ext 4/5, ab 4+/5, ER 4+/5, knee ext and flex 4+/5 LTG Duration 06/08/24 2 Impairment lower extremity functional scale 47% Short Term Goal (STG) Improve score to at least 60% as measure of improved activitiy tolerance and left LE function 03/01/24: inc to 61%, goal met STG Duration goal met Electrical Development Engineer Goal (LTG) Improve score to at least 75% as measure of improved activity tolerance and left LE function 04/10/24: today patient scored only 38% reporting at beginning of session no further progress since last seen approx 1 month ago. Today we reviewed her HEP, worked on correcting technique and modifications to her HEP for best muscle activation and performance. 05/01/24: score 52% LTG Duration 06/08/24 1 Impairment left knee pain as high as 8/10 , antalgic gait, difficulty on stairs Short Term Goal (STG) Decrease pain by at least 50% 03/01/24: pain dec to 3/10, goal met. Gait slow, guarded. Still step-to pattern on stairs STG Duration goal met Shelter Goal (LTG) Decrease pain by at least 75% with all usual activities and demonstrate ability to walk at normal speed without limp and alternate feet on stairs with ease 04/10/24: reports pain 4-7/10, no further improvement since 1 month ago. 05/01/24: pain decreased to 1-4 , walks without limp, cannot run LTG Duration 06/08/24 Assessment Summary Assessment Patient continues to progress with strengthening with pain 1 -4/10, reports as fatigues feels increased crepitus in knee. Cued for correct form, gluteal and HS activation SLDL . Anticipate 3 more PT visits , then discharge to independent HEP and self care. Physical Therapy Plan Frequency and Duration Frequency of Treatment 2x/Week Duration of treatment (weeks) 12 Plan of Care Start Date 04/10/24 Plan of Care End Date 06/08/24 Therapeutic Interventions Therapeutic Interventions Home Exercise Program,Manual Therapy,Neuromuscular Re- education,Patient/Caregiver Education,Self-Care/Home Management,Soft Tissue Mobilization,Taping, Therapeutic Activities, Therapeutic Exercises Modalities Cold Pack/Ice Massage,Electric Stimulation,Hot Packs, Iontophoresis,Ultrasound Next Visit Focus/Plan Next Note Type Treatment Note Next Visit Plan Continue LE strengthening, emphasis on closed chain, functional. Add weight to SLDL as possible.
--- NOTE | 2024-08-13 08:59 | PT.OPDS ---
Current Diagnoses Other bursitis of knee, left knee (05/15/24) Difficulty in walking, not elsewhere classified (05/15/24) Weakness (05/15/24) Edema, unspecified (05/15/24) Visit Care Team Role Provider Type TAMMY Santiago Family Provider Advanced Fruit Farmworker Primary Care Provider Specialty: Medical Address: [address] [place] [address], [id number] Email: [email or web address] Sahwanda Dennis MD Attending Provider Non-Staff Referring Provider Specialty: Oncology Address: [address] [place] [address], [id number] Email: Visit Number Visit Number 16 Discharge Summary PT-OP-B Current Condition Start: 01/18/24 16:16 Freq: Status: Active Protocol: Document 05/15/24 10:34 [facility] (Rec: 05/15/24 11:30 [facility] [id number]) Current Condition History of Current Condition Onset Date 5 weeks Current Complaints L knee pain History of Current sudden onset left knee pain, started with a little Condition fluid filled bump below knee, then helped friend moving boxes, next day very puffy, couldn't move it. At end of summer started doing some lunges and squats and had similar thing. Chiropracter did laser and taping and alternating ice and heat. This time has had 2 laser and tape treatments but hasn't gotten better yet. States thought she was being careful with alignment and technique. Now getting compensatory soreness. Can't straighten knee all the way. Tried a knee brace, not helpful Feels it is going to give out. Can't bend beyond 90 degrees, feels crackling. Prior Treatments and x-ray: no report yet. Tests PT-OP-C Subjective Start: 01/18/24 16:16 Freq: Status: Active Protocol: Document 05/15/24 10:34 [facility]AK (Rec: 05/15/24 11:30 [facility] [id number]) OP-PT Subjective Patient Comments Patient Comments Muscle soreness after workout with friend yesterday including bridging and slow squats, found herself feeling weaker toward the end, had to back off, not painful. Put knee brace on after and iced after . Stairs ok this week. PT-OP-F Manual Assessment Start: 01/18/24 16:16 Freq: Status: Active Protocol: Document 01/19/24 15:17 [facility] (Rec: 01/19/24 17:03 [facility] [id number]) Manual Assessments Soft Tissue Assessment Soft Tissue Mobility palpable tightness lateral quad and IT band Assessment PT-OP-G Mobility & Gait Start: 01/18/24 16:16 Freq: Status: Active Protocol: Document 01/19/24 15:17 [facility] (Rec: 01/19/24 17:03 [facility] [id number]) OP Mobility Evaluation Transfers Sit to Stand painful, dec use left LE Functional Movements Lifting and Carrying unable Squats unable Running Assessment unable OP Gait Assessment Gait Gait Assistance Independent Required: Assistive Devices Assistive Device None Gait Deviations General Gait Pattern Antalgic Comments Gait Comments Patient instructed in use of cane and trekking pole, preferred pole. Instructed in correct fit and use Stair Climbing Evaluation Evaluation Level of Assist On Independent Stairs Devices Stair Climbing Left Railing,Right Railing Assistive Devices Technique/Endurance Stair Climbing Step to Step Technique Comments Stair Climbing painful Comments PT-OP-J Posture/Palpation/Skin Start: 01/18/24 16:16 Freq: Status: Active Protocol: Document 01/19/24 15:17 [facility] (Rec: 01/19/24 17:03 [facility] [id number]) Posture Evaluation Position Standing Patellar Posture (L) Laterally Tilted Palpation Assessment Location One Palpation Location left knee Palpation Findings Edema Palpation Details puffy and boggy texture of swelling. No redness or warmth. PT-OP-K Range of Motion Start: 01/18/24 16:16 Freq: Status: Active Protocol: Document 01/19/24 15:17 [facility] (Rec: 01/19/24 17:03 [facility] [id number]) Hip Goniometric Range of Motion Hip myra Hip ROM WFL Yes Knee Goniometric Range of Motion Knee Left Flexion Active ( 90 degrees) Extension Active ( 20 degrees) Right Flexion Active ( 150 degrees) Extension Active ( 0 degrees) Hyper-Extension 5 Active Knee ROM Limitations Knee ROM Limitations Pain,Swelling Ankle and Foot Goniometric Range of Motion Ankle and Foot myra Ankle/Foot ROM WFL Yes PT-OP-L Special Tests Start: 01/18/24 16:16 Freq: Status: Active Protocol: Document 01/19/24 15:17 [facility] (Rec: 01/19/24 17:03 [facility] [id number]) Special Tests Knee Special Tests Patellar Grind Test Test Results + Valgus- 25 Degrees Test Results - Diana Test Test Results + Varus- 25 Degrees Test Results - PT-OP-M Strength Start: 01/18/24 16:16 Freq: Status: Active Protocol: Document 01/19/24 15:17 [facility] (Rec: 01/19/24 17:03 [facility] [id number]) Knee Strength Knee Manual Muscle Testing Left Flexion (S2) 3- Fair- Extension (L3) 3- Fair- Right Flexion (S2) 5 Normal Extension (L3) 5 Normal PT-OP-T Assessment and Plan Start: 01/18/24 16:16 Freq: Status: Active Protocol: Document 08/13/24 08:58 [facility] (Rec: 08/13/24 08:59 [facility] Laptop) Physical Therapy Plan Discharge Physical Therapy Discharge Reasons No Longer Attending PT
== END 2024-08-20 10:02 | disposition home or self-care (01) ==
LOC: PHYS 10:45
PROVIDERS: Family Provider Registered Nurse Diabetes Educator; PCP Registered Nurse Diabetes Educator; Referring Provider Student in an Organized Health Care Education/Training Program; Visit Provider Student in an Organized Health Care Education/Training Program
DX: M70.52 Other bursitis of knee, left knee (principal); R26.2 Difficulty in walking, not elsewhere classified; R53.1 Weakness; R60.9 Edema, unspecified
CPT/HCPCS: 97014; 97035; 97110; 97140; 97162; 97535; G0283

== ENCOUNTER → 2024-06-25 16:09 | Outpatient (CLI) | payer OTHER, SELFPAY | PROVIDERS: Family Provider Registered Nurse Diabetes Educator; PCP Registered Nurse Diabetes Educator; Referring Provider Registered Nurse Diabetes Educator; Visit Provider Registered Nurse Diabetes Educator | DX: J02.9 Acute pharyngitis, unspecified (principal) | CPT/HCPCS: 87070; 87077; 87147; 87186 ==